=== PATIENT | female | born 1930 | race Caucasian/White ===

== ENCOUNTER 2016-07-30 20:39 | Inpatient (IN) | payer BC, OTHER ==
[~2016-07-30] VITALS: Ht 160 cm; Wt 47.6 kg
[~2016-07-30 20:39] MED LIST: ACET-1311 PO; AMLO2.5T PO; CHOL100010 PO; CYAN10005 PO; LORA-741 PO; METO50TA7 PO; ONDA4TAB10 SL; PRED-301 PO; SERT50TA PO; SYMIN160 INH
[2016-07-30 21:32] LABS: COMPLETE YES; EOS % 0.4 %; HEMATOCRIT 37.6 % (37-47); IG% 0.7 %; LYMPH % 9.5 %; LYMPH ABS # 0.72 K/uL (1.2-3.4); MEAN CELL VOLUME 90.6 fL (80-100); MEAN CORPUSCULAR HEMOGLOBIN 30.1 pg (25-34); MEAN CORPUSCULAR HGB CONC 33.2 g/dl (32-36); MEAN PLATELET VOLUME 8.9 fL (7.4-10.4); MONO % 3.9 %; NEUT % 85.5 %; PLATELET COUNT 157 K/uL (130-400); RED BLOOD COUNT 4.15 M/uL (4.2-5.4); WHITE BLOOD COUNT 7.61 K/uL (4.8-10.8)
[2016-07-30 21:32] LABS: URINE APPEARANCE CLEAR (CLEAR); URINE BILIRUBIN NEG (NEG); URINE COLOR YELLOW; URINE NITRITE NEG (NEG); URINE SPECIFIC GRAVITY 1.012 (1.000-1.030); UROBILINOGEN NEG (NEG); ZZURINE CULT IF INDIC CATH NO
[2016-07-30 21:39] LABS: MANUAL MICROSCOPIC REQUIRED? NO; REVIEW REQ? NO
[2016-07-30 21:43] LABS: PROTHROMBIN TIME (PATIENT) 10.7 SECONDS (9.0-12.0)
[2016-07-30 21:52] LABS: BUN/CREATININE RATIO 14.9 (10-20); CALCIUM 8.8 mg/dl (8.5-10.1); CREATININE 2.6 mg/dl (0.60-1.20)
--- NOTE | 2016-07-30 21:53 | DIAGNOSTIC IMAGING REPORT ---
CT HEAD WITHOUT CONTRAST (CT) CLINICAL HISTORY: Head trauma. Head pain. COMPARISON STUDY: MRI the brain performed December 08, 2007 TECHNIQUE: Axial CT of the brain is performed from the vertex to the skull base. IV contrast was not administered for this examination. CT DOSE: 844.62 mGy.cm FINDINGS: No intra or extra-axial mass lesions are visualized. There is no CT evidence of acute cortical infarction. There is no evidence of midline shift. There is no acute hemorrhage. No calvarial fractures are visualized. There are moderate white matter hypodensities likely on a small vessel basis. There is mild ventricular dilatation, likely secondary to volume loss. There is no evidence of acute sinusitis IMPRESSION: No acute intracranial findings Electronically signed by: Apollo Lazcano M.D. 07/30/2016 9:51 PM Dictated Date/Time: 07/30/2016 9:50 PM
[2016-07-30] MEDS ORDERED: ONDANSETRON INJ 2 MG/ML 2 ML VIAL IV STA (22:21)
[2016-07-30] MEDS ORDERED: MoRPHine SULFATE 4 MG/ML 1 ML CARP\\VIAL IV STA (22:21)
--- NOTE | 2016-07-30 22:28 | DIAGNOSTIC IMAGING REPORT ---
CHEST 1 VW FRONT-NOT PORTABLE CLINICAL HISTORY: Pain status post trauma COMPARISON STUDY: 03/25/2016 FINDINGS: The study is performed in a supine fashion. Line shadows paralleling the right chest wall are felt to represent skin folds. The heart is mildly enlarged. There is no overt failure. There is no lobar consolidation There is a stable left suprahilar opacity, unchanged from studies dating back to 2006. This likely represents a prominent costochondral junction. No pleural effusions are visualized.[ IMPRESSION: Portable supine study. Stable cardiomegaly. No acute findings. Electronically signed by: Apollo Lazcano M.D. 07/30/2016 10:26 PM Dictated Date/Time: 07/30/2016 10:23 PM
--- NOTE | 2016-07-30 22:29 | DIAGNOSTIC IMAGING REPORT ---
RIGHT SHOULDER MIN 2 VIEWS ROUTINE CLINICAL HISTORY: Right shoulder pain status post trauma COMPARISON: None. DISCUSSION: There is narrowing of the humeral acromial distance consistent with chronic rotator cuff tear. Osteoarthritic changes are present within the glenohumeral joint. No acute fractures or dislocations are visualized. IMPRESSION: 1. Radiographic evidence of chronic rotator cuff tear 2. No acute fractures or dislocations 3. Osteoarthritic change Electronically signed by: Apollo Lazcano M.D. 07/30/2016 10:27 PM Dictated Date/Time: 07/30/2016 10:26 PM
--- NOTE | 2016-07-30 22:30 | DIAGNOSTIC IMAGING REPORT ---
AP pelvis and right hip 4 views CLINICAL HISTORY: Right hip pain COMPARISON STUDY: CT scan dated 03/25/2016 FINDINGS: There is a mildly displaced intertrochanteric right hip fracture. There is an old left ischio pubic ring deformity. There is no SI joint diastases. Degenerative changes are present within the lower lumbar spine. IMPRESSION: Mildly displaced angulated intertrochanteric right hip fracture. Electronically signed by: Apollo Lazcano M.D. 07/30/2016 10:29 PM Dictated Date/Time: 07/30/2016 10:27 PM
[2016-07-30] MEDS ORDERED: CHOL1000 PO (22:42)
--- NOTE | 2016-07-30 22:59 | EMERGENCY ROOM VISIT NOTE ---
History First contact with patient: 20:49 Chief Complaint: HIP PAIN Stated Complaint: FALL/ HEAD BUMP, RT HIP & LEG PAIN History of Present Illness The patient is a 86 year old female who presents to the Emergency Room via EMS with complaints of right hip pain. The patient states that she was trying to sit on her bed and fell striking her head on the wall injuring her right hip and right shoulder. The patient states she is unable to bear weight on the right leg. The patient denies any headache, dizziness or visual changes. The patient denies any dizziness prior to the fall. The patient does admit to some right shoulder pain. The patient denies any chest pain, shortness of breath or any abdominal pain. The patient points to her right hip when asked where it is painful. The patient denies any pain radiating down her legs or any numbness and tingling. Review of Systems 10 system review was performed and was negative unless stated otherwise history of present illness. Past Medical/Surgical History Medical Problems: (1) Anemia Nos (2) Chronic Obstructive Asthma, Nos (3) Dementia (4) Hyperlipidemia Nec/Nos (5) Hypertension Nos (6) Rotator Cuff Synd Nos Social History Smoking Status: Never Smoker Marital Status: Housing Status: group home Occupation Status: retired Current/Historical Medications Scheduled Amlodipine (Norvasc), 2.5 MG PO DAILY Budesonide/Formoterol Fumarate (Symbicort 160/4.5 Inhaler ), 2 PUFFS INH BID Cholecalciferol (Vitamin D3), 1,000 UNITS PO DAILY Cyanocobalamin (Vitamin B-12), 2,000 MCG PO DAILY Metoprolol Succ (Toprol Xl) (Toprol-Xl), 50 MG PO DAILY Prednisone (Prednisone), 5 MG PO DAILY Sertraline (Zoloft), 75 MG PO DAILY Scheduled PRN Acetaminophen (Tylenol), 325-650 MG PO Q6H PRN for Pain Lorazepam (Ativan), 0.5 MG PO Q8 PRN for ANXIETY Allergies Coded Allergies: Penicillins (Verified Allergy, Intermediate, PT STATES SHE "KEELED OVER"-- I HAVE NO IDEA WHAT THIS MEANS!, 07/30/16) PT STATES SHE "KEELED OVER" Codeine (Verified Allergy, Unknown, UNKNOWN, 07/30/16) Moxifloxacin (Verified Allergy, Unknown, UNKNOWN, 07/30/16) Tramadol (Verified Allergy, Unknown, UNKNOWN, 07/30/16) Uncoded Allergies: CYCLOSPORINS (Allergy, Unknown, UNKNOWN, 07/30/16) Physical Exam Vital Signs Date Time Temp Pulse Resp B/P Pulse Ox O2 Delivery O2 Flow Rate FiO2 07/30/16 22:41 96 16 190/88 96 Room Air 07/30/16 21:13 91 07/30/16 20:50 36.5 77 24 197/96 99 Room Air Physical Exam GENERAL: 86-year-old white female appears uncomfortable secondary to hip pain. MENTAL STATUS: Patient is alert and oriented x3. She is answering questions appropriately. HEAD: Area of ecchymosis and tenderness noted on the posterior scalp. No open wounds noted. EYES: PERRLA. EOMs intact. EARS: Canals clear. TMs without hemotympanum noted. NECK: Supple, no lymphadenopathy noted. No carotid bruits noted. LUNGS: Clear auscultation without wheezes rales or rhonchi. CARDIAC: Regular rate and rhythm without murmur. Pulses is full and equal throughout. ABDOMEN: Positive bowel sounds all 4 quadrants. Soft, nontender to palpation without organomegaly or masses. NEURO: Grossly intact. SPINE: Entire spine nontender to palpation RIGHT SHOULDER: No gross bony deformity noted. There is an abrasion noted over the humeral head. Tenderness palpation over this area. RIGHT HIP: Difficult to evaluate for leg shortening since the patient has her leg in a flexed position. It does appear to be slightly externally rotated. The patient's tenderness palpation over the greater trochanter. Medical Decision & Procedures ER Provider Diagnostic Interpretation: CT HEAD WITHOUT CONTRAST (CT) CLINICAL HISTORY: Head trauma. Head pain. COMPARISON STUDY: MRI the brain performed December 08, 2007 TECHNIQUE: Axial CT of the brain is performed from the vertex to the skull base. IV contrast was not administered for this examination. CT DOSE: 844.62 mGy.cm FINDINGS: No intra or extra-axial mass lesions are visualized. There is no CT evidence of acute cortical infarction. There is no evidence of midline shift. There is no acute hemorrhage. No calvarial fractures are visualized. There are moderate white matter hypodensities likely on a small vessel basis. There is mild ventricular dilatation, likely secondary to volume loss. There is no evidence of acute sinusitis IMPRESSION: No acute intracranial findings Electronically signed by: Apollo Lazcano M.D. 07/30/2016 9:51 PM AP pelvis and right hip 4 views CLINICAL HISTORY: Right hip pain COMPARISON STUDY: CT scan dated 03/25/2016 FINDINGS: There is a mildly displaced intertrochanteric right hip fracture. There is an old left ischio pubic ring deformity. There is no SI joint diastases. Degenerative changes are present within the lower lumbar spine. IMPRESSION: Mildly displaced angulated intertrochanteric right hip fracture. Electronically signed by: Apollo Lazcano M.D. 07/30/2016 10:29 PM RIGHT SHOULDER MIN 2 VIEWS ROUTINE CLINICAL HISTORY: Right shoulder pain status post trauma COMPARISON: None. DISCUSSION: There is narrowing of the humeral acromial distance consistent with chronic rotator cuff tear. Osteoarthritic changes are present within the glenohumeral joint. No acute fractures or dislocations are visualized. IMPRESSION: 1. Radiographic evidence of chronic rotator cuff tear 2. No acute fractures or dislocations 3. Osteoarthritic change Electronically signed by: Apollo Lazcano M.D. 07/30/2016 10:27 PM CHEST 1 VW FRONT-NOT PORTABLE CLINICAL HISTORY: Pain status post trauma COMPARISON STUDY: 03/25/2016 FINDINGS: The study is performed in a supine fashion. Line shadows paralleling the right chest wall are felt to represent skin folds. The heart is mildly enlarged. There is no overt failure. There is no lobar consolidation There is a stable left suprahilar opacity, unchanged from studies dating back to 2006. This likely represents a prominent costochondral junction. No pleural effusions are visualized.[ IMPRESSION: Portable supine study. Stable cardiomegaly. No acute findings. Electronically signed by: Apollo Lazcano M.D. 07/30/2016 10:26 PM Laboratory Results 07/30/16 21:23 Red Blood Count 4.15, Mean Corpuscular Volume 90.6, Mean Corpuscular Hemoglobin 30.1, Mean Corpuscular Hemoglobin Concent 33.2, Mean Platelet Volume 8.9, Neutrophils (%) (Auto) 85.5, Lymphocytes (%) (Auto) 9.5, Monocytes (%) (Auto) 3.9, Eosinophils (%) (Auto) 0.4, Basophils (%) (Auto) 0.0, Neutrophils # (Auto) 6.51, Lymphocytes # (Auto) 0.72, Monocytes # (Auto) 0.30, Eosinophils # (Auto) 0.03, Basophils # (Auto) 0.00 07/30/16 21:23 Test 07/30/16 21:20 07/30/16 21:23 Urine Color YELLOW Urine Appearance CLEAR (CLEAR) Urine pH 7.0 (4.5-7.5) Urine Specific [place] 1.012 (1.000-1.030) Urine Protein NEG (NEG) Urine Glucose (UA) NEG (NEG) Urine Ketones NEG (NEG) Urine Occult Blood 1+ (NEG) Urine Nitrite NEG (NEG) Urine Bilirubin NEG (NEG) Urine Urobilinogen NEG (NEG) Urine Leukocyte Esterase TRACE (NEG) Urine WBC (Auto) 1-5 /hpf (0-5) Urine RBC (Auto) 0-4 /hpf (0-4) Urine Hyaline Casts (Auto) 1-5 /lpf (0-5) Urine Epithelial Cells (Auto) 5-10 /lpf (0-5) Urine Bacteria (Auto) NEG (NEG) White Blood Count 7.61 K/uL (4.8-10.8) Red Blood Count 4.15 M/uL (4.2-5.4) Hemoglobin 12.5 g/dL (12.0-16.0) Hematocrit 37.6 % (37-47) Mean Corpuscular Volume 90.6 fL (80-100) Mean Corpuscular Hemoglobin 30.1 pg (25-34) Mean Corpuscular Hemoglobin Concent 33.2 g/dl (32-36) Platelet Count 157 K/uL (130-400) Mean Platelet Volume 8.9 fL (7.4-10.4) Neutrophils (%) (Auto) 85.5 % Lymphocytes (%) (Auto) 9.5 % Monocytes (%) (Auto) 3.9 % Eosinophils (%) (Auto) 0.4 % Basophils (%) (Auto) 0.0 % Neutrophils # (Auto) 6.51 K/uL (1.4-6.5) Lymphocytes # (Auto) 0.72 K/uL (1.2-3.4) Monocytes # (Auto) 0.30 K/uL (0.11-0.59) Eosinophils # (Auto) 0.03 K/uL (0-0.5) Basophils # (Auto) 0.00 K/uL (0-0.2) RDW Standard Deviation 48.0 fL (36.4-46.3) RDW Coefficient of Variation 14.4 % (11.5-14.5) Immature Granulocyte % (Auto) 0.7 % Immature Granulocyte # (Auto) 0.05 K/uL (0.00-0.02) Prothrombin Time 10.7 SECONDS (9.0-12.0) Prothromb Time International Ratio 1.0 (0.9-1.1) Activated Partial Thromboplast Time 25.0 SECONDS (21.0-31.0) Partial Thromboplastin Ratio 1.0 Anion Gap 9.0 mmol/L (3-11) Est Creatinine Clear Calc Drug Dose 11.9 ml/min Estimated GFR () 18.7 Estimated GFR (Non- 16.2 BUN/Creatinine Ratio 14.9 (10-20) Calcium Level 8.8 mg/dl (8.5-10.1) Chemistry Specimen Hemolysis Medications Administered Medications (Trade) Dose Ordered Sig/Jose M Route Start Time Stop Time Status Last Admin Dose Admin Morphine Sulfate (MoRPHine SULFATE INJ) 4 mg NOW STAT IV 07/30/16 22:21 07/30/16 22:22 DC 07/30/16 22:39 4 MG Ondansetron HCl (Zofran Inj) 4 mg NOW STAT IV 07/30/16 22:21 07/30/16 22:22 DC 07/30/16 22:36 4 MG ECG Indication: other (fall) Findings: PVC, no acute ischemic change ED Course The patient was evaluated. The patient had received morphine and Zofran in route to the emergency room. The patient is placed on a monitor. EKG was ordered and interpreted by myself and Dr. Hernandez as above. Chest x-ray was ordered and interpreted by the radiologist as above without any acute findings. CBC and differential, renal profile, coags were ordered. Type and screen was ordered. Hand cath was placed. Urinalysis was ordered. X-ray of the right shoulder was ordered and interpreted by the radiologist as above without any acute findings. CT the head was ordered and interpreted by the radiologist as above without any acute findings . Pelvis with right hip was ordered and interpreted by the radiologist as above with right intertrochanteric fracture. Urinalysis revealed a trace of leukocytes and trace of blood. No bacteria was noted at this time. This will be sent for culture. The patient was reevaluated and stated she did not need any additional pain medication at this time. CBC was reviewed and was unremarkable. Renal profile revealed elevated BUN and creatinine. When the patient got back from CAT scan x-ray she was complaining of more pain and therefore was given morphine 4 mg IV and Zofran 4 mg IV push for associated nausea. The patient was informed of all findings. The patient's case was discussed with Dr. Hernandez who independently evaluated the patient. The hospitalist was consulted for admission. Medical Decision The patient presented with most likely right hip fracture therefore Emergency Department hip fracture protocol was initiated. She also presented with head injury and right shoulder abrasion therefore those x-rays were also ordered to evaluate for fracture or intracranial bleed, subarachnoid hemorrhage, subdural hematoma, intercranial bleed or fracture. X-ray the right hip was ordered to evaluate for fracture. Impression Primary Impression: Hip fracture, right Additional Impressions: Abrasion of shoulder, right Renal failure Departure Information Dispostion Being Evaluated By Hospitalist Condition GOOD Referrals Bon Weinberg M.D. (PCP) Patient Instructions My [facility] Problem Qualifiers
--- NOTE | 2016-07-30 23:37 | History and Physical ---
History & Physical Date & Time of Service: Jul 30, 2016 at 23:37 Chief Complaint: Fall/ Head Bump, Rt Hip & Leg Pain Primary Care Physician: Bon Weinberg M.D. History of Present Illness This is an 86 y/o F who presents with right hip pain. Her son reports that she was trying to transfer from her chair to her bed and subsequently fell while hitting her head, right hip and shoulder against the wall. She is unable to bear weight on the right side. She denies headaches, LOC, pre-syncope, syncope, neurological changes, numbness/tingling chest pain, shortness of breath. Pain is about 7/10 but improving. SHe is able to move her lower extremities but her right leg is rather painful. Past Medical/Surgical History Medical Problems: (1) Anemia Nos Status: Chronic (2) Chronic Obstructive Asthma, Nos Status: Chronic (3) Dementia Status: Chronic (4) Hyperlipidemia Nec/Nos Status: Chronic (5) Hypertension Nos Status: Chronic (6) Rotator Cuff Synd Nos Status: Chronic Social History Smoking Status: Never Smoker Alcohol Use: none Marital Status: Housing status: assisted living Occupational Status: retired Immunizations History of Influenza Vaccine: Unknown History of Tetanus Vaccine?: Unknown History of Pneumococcal: Unknown History of Hepatitis B Vaccine: Unknown Multi-Drug Resistant Organisms History of MDRO: No Allergies Coded Allergies: Penicillins (Verified Allergy, Intermediate, PT STATES SHE "KEELED OVER"-- I HAVE NO IDEA WHAT THIS MEANS!, 07/30/16) PT STATES SHE "KEELED OVER" Codeine (Verified Allergy, Unknown, UNKNOWN, 07/30/16) Moxifloxacin (Verified Allergy, Unknown, UNKNOWN, 07/30/16) Tramadol (Verified Allergy, Unknown, UNKNOWN, 07/30/16) Uncoded Allergies: CYCLOSPORINS (Allergy, Unknown, UNKNOWN, 07/30/16) Home Medications Scheduled Amlodipine (Norvasc), 2.5 MG PO DAILY Budesonide/Formoterol Fumarate (Symbicort 160/4.5 Inhaler ), 2 PUFFS INH BID Cholecalciferol (Vitamin D3), 1,000 UNITS PO DAILY Cyanocobalamin (Vitamin B-12), 2,000 MCG PO DAILY Metoprolol Succ (Toprol Xl) (Toprol-Xl), 50 MG PO DAILY Prednisone (Prednisone), 5 MG PO DAILY Sertraline (Zoloft), 75 MG PO DAILY Scheduled PRN Acetaminophen (Tylenol), 325-650 MG PO Q6H PRN for Pain Lorazepam (Ativan), 0.5 MG PO Q8 PRN for ANXIETY Review of Systems Constitutional: No chills, No fever Eyes: No worsening of vision ENT: No hearing loss Respiratory: No cough, No dyspnea at rest, No dyspnea on exertion, No shortness of breath, No sputum, No wheezing Cardiovascular: No PND, No chest pain, No edema, No orthopnea Abdomen: No constipation, No diarrhea, No nausea, No pain, No vomiting Musculoskeletal: + joint pain, + muscle pain, + swelling, No calf pain Genitourinary - Female: + urinary incontinence, No dysuria, No urinary frequency, No urinary urgency Physical Exam Vital Signs Date Time Temp Pulse Resp B/P Pulse Ox O2 Delivery O2 Flow Rate FiO2 07/30/16 23:23 86 18 145/90 97 07/30/16 22:41 96 16 190/88 96 Room Air 07/30/16 21:13 91 07/30/16 20:50 36.5 77 24 197/96 99 Room Air General Appearance: + mild distress (pain) Eyes: PERRL, EOMI ENT: hearing grossly normal Neck: supple, thyroid normal, no JVD Respiratory/Chest: lungs clear, normal breath sounds, no respiratory distress, no accessory muscle use Cardiovascular: regular rate, rhythm, no edema, no JVD Abdomen/GI: normal bowel sounds, non tender, soft Extremities/Musculoskelatal: no pedal edema, + pertinent finding (decreased range of motion at the right hip) Neurologic/Psych: candy separator enrobing II-XII nml as tested, + motor weakness (3/5 Right lower ext ) Diagnostics Laboratory Results Results Past 24 Hours Test 07/30/16 21:20 07/30/16 21:23 Range/Units Urine Color YELLOW Urine Appearance CLEAR CLEAR Urine pH 7.0 4.5-7.5 Urine Specific [place] 1.012 1.000-1.030 Urine Protein NEG NEG Urine Glucose (UA) NEG NEG Urine Ketones NEG NEG Urine Occult Blood 1+ NEG Urine Nitrite NEG NEG Urine Bilirubin NEG NEG Urine Urobilinogen NEG NEG Urine Leukocyte Esterase TRACE NEG Urine WBC (Auto) 1-5 0-5 /hpf Urine RBC (Auto) 0-4 0-4 /hpf Urine Hyaline Casts (Auto) 1-5 0-5 /lpf Urine Epithelial Cells (Auto) 5-10 0-5 /lpf Urine Bacteria (Auto) NEG NEG White Blood Count 7.61 4.8-10.8 K/uL Red Blood Count 4.15 4.2-5.4 M/uL Hemoglobin 12.5 12.0-16.0 g/dL Hematocrit 37.6 37-47 % Mean Corpuscular Volume 90.6 80-100 fL Mean Corpuscular Hemoglobin 30.1 25-34 pg Mean Corpuscular Hemoglobin Concent 33.2 32-36 g/dl Platelet Count 157 130-400 K/uL Mean Platelet Volume 8.9 7.4-10.4 fL Neutrophils (%) (Auto) 85.5 % Lymphocytes (%) (Auto) 9.5 % Monocytes (%) (Auto) 3.9 % Eosinophils (%) (Auto) 0.4 % Basophils (%) (Auto) 0.0 % Neutrophils # (Auto) 6.51 1.4-6.5 K/uL Lymphocytes # (Auto) 0.72 1.2-3.4 K/uL Monocytes # (Auto) 0.30 0.11-0.59 K/uL Eosinophils # (Auto) 0.03 0-0.5 K/uL Basophils # (Auto) 0.00 0-0.2 K/uL RDW Standard Deviation 48.0 36.4-46.3 fL RDW Coefficient of Variation 14.4 11.5-14.5 % Immature Granulocyte % (Auto) 0.7 % Immature Granulocyte # (Auto) 0.05 0.00-0.02 K/uL Prothrombin Time 10.7 9.0-12.0 SECONDS Prothromb Time International Ratio 1.0 0.9-1.1 Activated Partial Thromboplast Time 25.0 21.0-31.0 SECONDS Partial Thromboplastin Ratio 1.0 Sodium Level 140 136-145 mmol/L Potassium Level 5.0 3.5-5.1 mmol/L Chloride Level 104 98-107 mmol/L Carbon Dioxide Level 27 21-32 mmol/L Anion Gap 9.0 3-11 mmol/L Blood Urea Nitrogen 39 7-18 mg/dl Creatinine 2.60 0.60-1.20 mg/dl Est Creatinine Clear Calc Drug Dose 11.9 ml/min Estimated GFR () 18.7 Estimated GFR (Non- 16.2 BUN/Creatinine Ratio 14.9 10-20 Random Glucose 117 70-99 mg/dl Calcium Level 8.8 8.5-10.1 mg/dl Chemistry Specimen Hemolysis Impression Assessment and Plan Right hip fracture Hip X-ray- Mildly displaced angulated intertrochanteric right hip fracture. Pain control Avoid Ativan as patient seems a little confused and has a history of dementia IVF's Ortho consult Bed rest PT/OT for after surgery Hand cath Labs drawn- Coags, CBC/CMP EKG, Chest X-ray MENA on CKD stage 3-4? Hydration Recheck BMP tomorrow. HTN: Continue Amlodipine, Metoprolol DVT proph SCDs Code: Patient would not want any heroic measures correction Full code for surgery purposes Assessment and Plan Attending Addendum: I have physically seen and examined this patient, have directed their medical care, have supervised the medical residents activities, and agree with the H&P as noted above, with the following changes: NONE
[2016-07-30] MEDS ORDERED: SOD PHOSPHATE/SOD BIPHOSPHATE ENEMA 132 ML BTL PR PRN (23:45)
[2016-07-30] MEDS ORDERED: NALOXONE HCL 0.4 MG/1 ML VIAL/CARP IV PRN (23:45)
[2016-07-30] MEDS ORDERED: POLYETHYLENE (MIRALAX) 17 GM PACK PO PRN ×2 (23:45)
[2016-07-30] MEDS ORDERED: ONDANSETRON INJ 2 MG/ML 2 ML VIAL IV PRN (23:45)
[2016-07-30] MEDS ORDERED: MoRPHine SULFATE 2 MG/ML CARP IV PRN (23:45)
[2016-07-30] MEDS ORDERED: MAGNESIUM HYDROXIDE SUSP 30 ML UDC PO PRN ×2 (23:45)
[2016-07-30] MEDS ORDERED: ALUMINUM/MAGNESIUM/SIMETH (MAALOX MAX) 30 ML UDC PO PRN (23:45)
[2016-07-30] MEDS ORDERED: BISACODYL 10 MG SUPP PR PRN (23:45)
[2016-07-30] MEDS ORDERED: ACETAMINOPHEN 325 MG TAB PO PRN ×2 (23:45)
[2016-07-31] VITALS (9 sets, daily range): BP systolic 95–170; BP diastolic 45–84; PULSE 70–87; TEMP 36.5–37.1; O2SAT 93–100; Ht 160 cm; Wt 47.6 kg
[2016-07-31] MEDS ORDERED: D5W AND 1/2NSS 1,000 ML IV SCH (01:15)
[2016-07-31 06:56] LABS: BUN/CREATININE RATIO 15.8 (10-20); CALCIUM 8.1 mg/dl (8.5-10.1); CREATININE 2.1 mg/dl (0.60-1.20); POTASSIUM 4.9 mmol/L (3.5-5.1)
[2016-07-31] MEDS ORDERED: NALOXONE HCL 0.4 MG/1 ML VIAL/CARP IV PRN ×2 (08:15→10:30)
[2016-07-31] MEDS ORDERED: BISACODYL 10 MG SUPP PR PRN ×2 (08:15→10:30)
[2016-07-31] MEDS ORDERED: POLYETHYLENE (MIRALAX) 17 GM PACK PO PRN (08:15)
[2016-07-31] MEDS ORDERED: MAGNESIUM HYDROXIDE SUSP 30 ML UDC PO PRN ×2 (08:15→10:30)
[2016-07-31] MEDS ORDERED: SOD PHOSPHATE/SOD BIPHOSPHATE ENEMA 132 ML BTL PR PRN (08:15)
--- NOTE | 2016-07-31 08:24 | ORTHOPEDIC CONSULTATION ---
DATE OF CONSULTATION: 07/31/2016 DATE OF CONSULTATION: 07/31/2016. CHIEF COMPLAINT: Right hip pain. HISTORY OF PRESENT ILLNESS: An 86-year-old female presents after an unwitnessed fall, lives in a facility who was found on the floor, apparently trying to transfer from her bed to the chair or vice versa, fell hitting her head, right hip and right shoulder against a wall. She is unable to bear weight on the right side. There was no reported loss of consciousness, presyncope or neurologic changes. She denies any chest pain, shortness of breath, fever or chills. She can move her left leg, but the right leg is painful. She can move both hands. She is very demented and does not recall things very clearly. She does note that she does have a son who lives locally. I did call him on the phone and talk to him regarding the gravity of the situation including the potential for mortality based on this comorbidity and this fracture and this patient profile. X-rays are reviewed revealing an intertrochanteric fracture with degenerative change about the hip. At this point in time, if surgical technique is requested would proceed with [facility]. PAST MEDICAL AND PAST SURGICAL HISTORY: Remarkable for chronic anemia, chronic obstructive pulmonary disease, chronic dementia, chronic hyperlipidemia, chronic hypertension, and bilateral rotator cuff syndromes. SOCIAL HISTORY: Reveals that she does not smoke or drink. She is . She lives in assisted living. She is retired. IMMUNIZATION STATUS: Is unknown. No multidrug resistant organisms known. ALLERGIES: PENICILLIN, UNKNOWN REACTION; CODEINE, UNKNOWN REACTION; MOXIFLOXACIN, UNKNOWN REACTION; TRAMADOL, UNKNOWN REACTION; CYCLOSPORINE'S, UNKNOWN REACTION. HOME MEDICATIONS: Include amlodipine, budesonide - formoterol fumarate, vitamin D, vitamin B12, metoprolol, prednisone and Zoloft. P.R.N. MEDICATIONS: Include lorazepam and acetaminophen. REVIEW OF SYSTEMS: Reveals no admitable chest pain, shortness of breath, fever, chills, nausea, vomiting. PHYSICAL EXAMINATION: HEAD, EYES, EARS, NOSE, AND THROAT: Today reveals that she has a slight facial droop on the right. There is no loss of EOMI. Her hearing is grossly normal. Her neck is nontender. CHEST: Clear. HEART: Regular rate and rhythm. ABDOMEN: Soft, nontender, without mass. EXTREMITIES: Reveal right leg to be painful and slightly shortened. Left leg without pain. Both upper movements are intact, has pain in both shoulders, has significant rotator cuff disease bilaterally. LABORATORY WORK: Is reviewed. Chest x-ray is reviewed. EKG reveals some chronic changes, age indeterminate changes. Pelvic x-ray reveals an intertrochanteric fracture with degenerative disease. ASSESSMENT: Right hip fracture. Discussed with son, wants to proceed with surgery. Will make arrangements for this BHAKTI. Medical clearance will be required. She has hypertension, renal insufficiency and coronary artery disease based on her EKG. Will need medical clearance. For perioperative scenario will be FULL CODE in the operating room and after that has living will with no heroic measures. This was discussed in detail with her son including the demise within the first 3 months. He understands this. Will proceed as cleared.
--- NOTE | 2016-07-31 08:41 | Hospitalist Progress Note ---
Hospitalist Progress Note Date of Service Jul 31, 2016. Subjective Pt evaluation today including: conversation w/ patient, conversation w/ family , physical exam, chart review, lab review, review of studies, review of inpatient medication list PO Intake: NPO Voiding: henderson catheter in place The patient was seen and examined this morning. Pt reports having lots of pain in the right hip currently, left shoulder is sore. Her son, Delano is present at bedside. She denies any lightheadedness, dizziness, shortness of breath, chest pain, nausea, abd pain. Son reports she has significant short term memory loss and will not remember this visit within a few minutes. Her story regarding how she fell has "several versions" per the son as well. Spoke with Dr. Dale and pt is being transported to the OR now. Constitutional: No chills, No fever, No sweats Eyes: No diplopia, No redness ENT: No dental problems, No trouble swallowing Respiratory: + problem reported (hx of asthma, uses inhalers), No cough, No dyspnea on exertion, No shortness of breath Cardiovascular: No chest pain, No palpitations Abdomen: No constipation, No diarrhea, No nausea, No pain, No vomiting Musculoskeletal: + joint pain (R hip), No muscle pain, No swelling Female : + problem reported Neurologic: No numbness/tingling Skin: No itch, No rash Objective Vital Signs Date Time Temp Pulse Resp B/P Pulse Ox O2 Delivery O2 Flow Rate FiO2 07/31/16 07:30 Room Air 07/31/16 07:12 37.1 75 18 155/71 93 Room Air 07/31/16 01:20 36.7 87 16 164/84 Room Air 07/31/16 00:56 93 16 150/96 93 07/30/16 23:23 86 18 145/90 97 07/30/16 22:41 96 16 190/88 96 Room Air 07/30/16 21:13 91 07/30/16 20:50 36.5 77 24 197/96 99 Room Air Physical Exam General Appearance: WD/WN, no apparent distress Eyes: PERRL, EOMI ENT: hearing grossly normal, pharynx normal Neck: supple, no JVD Respiratory/Chest: lungs clear, no respiratory distress, no accessory muscle use Cardiovascular: regular rate, rhythm, + pertinent finding (opening click) Abdomen: normal bowel sounds, non tender, soft, + pertinent finding (henderson catheter in place draining clear yellow urine) Extremities: no pedal edema, no calf tenderness, + pertinent finding (L shoulder abraision) Neurologic/Psychiatric: alert, normal mood/affect, + pertinent finding ( oriented to self and place, not date) Skin: normal color, warm/dry Laboratory Results Last 24 Hours Test 07/30/16 21:20 07/30/16 21:23 07/31/16 06:02 Urine Color YELLOW Urine Appearance CLEAR Urine pH 7.0 Urine Specific [place] 1.012 Urine Protein NEG Urine Glucose (UA) NEG Urine Ketones NEG Urine Occult Blood 1+ Urine Nitrite NEG Urine Bilirubin NEG Urine Urobilinogen NEG Urine Leukocyte Esterase TRACE Urine WBC (Auto) 1-5 /hpf Urine RBC (Auto) 0-4 /hpf Urine Hyaline Casts (Auto) 1-5 /lpf Urine Epithelial Cells (Auto) 5-10 /lpf Urine Bacteria (Auto) NEG White Blood Count 7.61 K/uL Red Blood Count 4.15 M/uL Hemoglobin 12.5 g/dL Hematocrit 37.6 % Mean Corpuscular Volume 90.6 fL Mean Corpuscular Hemoglobin 30.1 pg Mean Corpuscular Hemoglobin Concent 33.2 g/dl Platelet Count 157 K/uL Mean Platelet Volume 8.9 fL Neutrophils (%) (Auto) 85.5 % Lymphocytes (%) (Auto) 9.5 % Monocytes (%) (Auto) 3.9 % Eosinophils (%) (Auto) 0.4 % Basophils (%) (Auto) 0.0 % Neutrophils # (Auto) 6.51 K/uL Lymphocytes # (Auto) 0.72 K/uL Monocytes # (Auto) 0.30 K/uL Eosinophils # (Auto) 0.03 K/uL Basophils # (Auto) 0.00 K/uL RDW Standard Deviation 48.0 fL RDW Coefficient of Variation 14.4 % Immature Granulocyte % (Auto) 0.7 % Immature Granulocyte # (Auto) 0.05 K/uL Prothrombin Time 10.7 SECONDS Prothromb Time International Ratio 1.0 Activated Partial Thromboplast Time 25.0 SECONDS Partial Thromboplastin Ratio 1.0 Sodium Level 140 mmol/L 140 mmol/L Potassium Level 5.0 mmol/L 4.9 mmol/L Chloride Level 104 mmol/L 105 mmol/L Carbon Dioxide Level 27 mmol/L 30 mmol/L Anion Gap 9.0 mmol/L 5.0 mmol/L Blood Urea Nitrogen 39 mg/dl 33 mg/dl Creatinine 2.60 mg/dl 2.10 mg/dl Est Creatinine Clear Calc Drug Dose 11.9 ml/min 14.7 ml/min Estimated GFR () 18.7 24.3 Estimated GFR (Non- 16.2 20.9 BUN/Creatinine Ratio 14.9 15.8 Random Glucose 117 mg/dl 129 mg/dl Calcium Level 8.8 mg/dl 8.1 mg/dl Chemistry Specimen Hemolysis Assessment and Plan Right hip fracture s/p fall - Hip X-ray- Mildly displaced angulated intertrochanteric right hip fracture. - CT of the head reviewed and negative for acute findings. Pt denies headache, dizziness, lightheadedness. No apparent abrasions on head. Pt does have Left shoulder abrasion and has ecchymosis surrounding the left collarbone. - Planned for OR this morning- Spoke with Dr. Mejia at bedside - Analgesia with morphine sulfate 2 or 4 mg - Avoid Ativan as patient seems a little confused and has a history of dementia - Cont D5W and 1/2 NSS @ 75mL/hr - PT/OT after surgery - Bowel regimen on board - Cont Henderson cath MENA on CKD stage IV - Cont gentle hydration for now - Cr. was 2.6 on admit and now improved to 2.1 HTN: - Continue Amlodipine 2.5 mg daily, Metoprolol succucinate 50 mg daily Asthma COPD - Cont albuterol inhalers as needed, cont prednisone 5 mg daily chronically - Breath sounds are clear this morning, will need flutter and incentive spirometry after surgery Seronegative Rheumatoid Arthritis - Continue prednisone 5 mg daily chronically Chronic Pain syndrome secondary to osteoarthritis, cervical spine stenosis with myelopathy Dementia - Per son pt has worsening mental status in relation to short term memory. She was moved to [facility] last January and was doing a little better since living there at that time. Likely has progressed over the past few months. Depression/Anxiety - Cont zoloft 75 mg daily DVT proph: teds, SCDs, no chemical anticoagulation with pending surgery CODE STATUS: FULL CODE: Patient would not want any heroic measures snf Disposition: From [facility] in [place], will need rehab after hospitalization, CM to assist with dc planning
[2016-07-31] MEDS ORDERED: CLINDAMYCIN IV 900 MG in DEXTROSE 5% ADD-VANTAGE 100ML 100 ML IV SCH (09:00)
[2016-07-31] MEDS ORDERED: AMLODIPINE BESYLATE 5 MG TAB PO SCH (09:00)
[2016-07-31] MEDS: SERTRALINE HCL 50 MG TAB PO SCH (09:00)
[2016-07-31] MEDS ORDERED: METOPROLOL SUCC 50MG EXT REL TAB PO SCH (09:00)
[2016-07-31] MEDS: BUDESONIDE/FORMOTEROL FUMARATE 160/4.5 60 PUFFS/INHALER INH SCH ×2 (09:00→20:59)
[2016-07-31] MEDS ORDERED: FENTANYL CITRATE INJ 50 MCG/1 ML 2 ML VIAL ONE (09:03)
[2016-07-31] MEDS ORDERED: ATROPINE SULFATE 0.1 MG/ML 5ML SYR IV PRN (10:00)
[2016-07-31] MEDS ORDERED: HYDROmorphone INJ 2 MG/ML SYR/VIAL IV PRN (10:00)
[2016-07-31] MEDS ORDERED: ONDANSETRON INJ 2 MG/ML 2 ML VIAL IV PRN ×2 (10:00→10:30)
[2016-07-31] MEDS ORDERED: EpHEDrine SULFATE INJ 50 MG/ML AMP IV PRN (10:00)
[2016-07-31] MEDS ORDERED: PHENYLEPHRINE 100MCG/ML 5ML SYR IV PRN (10:00)
--- NOTE | 2016-07-31 10:13 | [facility] Post Operative Brief Note ---
Immediate Operative Summary Operative Date Jul 31, 2016. Pre-Operative Diagnosis Right hip fracture Post-Operative Diagnosis Right hip fracture Procedure(s) Performed Right Open Reduction Internal Fixation Dynamic Hip Screw Surgeon Dr. Mejia Certified Welder Surgeon(s) Milo Gates PA-C Estimated Blood Loss 200mL Findings right IT fx with comminution Fluids (cc crystalloids) 1000cc Specimens None per surgeon Drains none Anesthesia spinal Complication(s) None Disposition Recovery Room / PACU
[2016-07-31] MEDS ORDERED: MoRPHine SULFATE 2 MG/ML CARP IV PRN (10:30)
[2016-07-31] MEDS ORDERED: OXYCODONE HCL IR 5 MG TAB (IMMEDIATE RELEASE) PO PRN ×2 (10:30)
[2016-07-31] MEDS ORDERED: ACETAMINOPHEN 325 MG TAB PO PRN (10:30)
--- NOTE | 2016-07-31 11:01 | DIAGNOSTIC IMAGING REPORT ---
RIGHT HIP OR FILMS CLINICAL HISTORY: RT DHS Righthip pain COMPARISON STUDY: None FLUOROSCOPY TIME: 53 seconds. FINDINGS: Operative changes consistent with a right hip pinning and compression plate placement IMPRESSION: Right hip pinning Electronically signed by: Rosalio Shaikh M.D. 07/31/2016 10:59 AM Dictated Date/Time: 07/31/2016 10:58 AM
--- NOTE | 2016-07-31 11:12 | DIAGNOSTIC IMAGING REPORT ---
PELVIS 1 OR 2 VIEW ROUTINE CLINICAL HISTORY: Right hip fracture COMPARISON STUDY: 07/30/2016 FINDINGS: There is been internal fixation of the patient's right hip fracture with a dynamic hip screw. There is air within the soft tissues consistent with recent surgery. There are overlying skin helder. There is an old left pubic ring fracture. IMPRESSION: Internally fixated intertrochanteric right hip fracture Electronically signed by: Apollo Lazcano M.D. 07/31/2016 11:10 AM Dictated Date/Time: 07/31/2016 11:09 AM
--- NOTE | 2016-07-31 11:43 | OPERATIVE REPORT ---
DATE OF OPERATION: 07/31/2016 SURGEON: Dr. Mejia. ROOMING HOUSE OPERATOR: Milo Gates PA-C. No resident or fellow available. PREOPERATIVE DIAGNOSIS: Intertrochanteric fracture, right hip. POSTOPERATIVE DIAGNOSIS: Same. OPERATION PERFORMED: Closed reduction internal fixation with dynamic hip screw, right hip. PERIOPERATIVE SITUATION: Medically cleared female with comorbidities, high risk who has been discussed in detail with her and her family, her son Delano, regarding the complications including . At this point in time wants to proceed with surgical treatment to try to maximize her lifestyle for the next part of her life. She does have hip arthritis. DESCRIPTION OF PROCEDURE: The patient appropriately identified, site verified, consent verified, and 900 mg of clindamycin confirmed as being given. The patient was placed supine on the operating table in the right lower extremity, reduced appropriately and then the fracture prepped and draped in the usual routine fashion. The hip after it was reduced, was then approached through the lateral exposure. Sharp dissection through skin and blunt dissection down to the fascia, this was then incised under direct vision. The IT band split, the vastus lateralis muscle fibers split and using fluoroscopic control, a guidewire was passed until it was in the center of the head on the lateral and slightly inferior on the AP. It was then measured to a 75, and a 75 drill bit applied with short barrel, the lag screw was then placed in excellent purchase on the AP and lateral. The 135 4-hole side plate was then placed and secured with 4 cortical screws of varying in length from 42-36 mm; two 36 mm, one 38 mm and one 42 mm, excellent purchase on all of those. Fluoroscopic control revealed anatomic reduction of the fracture and excellent position of the hardware. The wound was then irrigated and then closed in layers using #1 Vicryl for the fascial layers, 2-0 Vicryl for the subcutaneous layer and stainless steel clips for skin. Appropriate soft tissue dressing applied and patient transferred to recovery room in satisfactory condition having tolerated the procedure well. ESTIMATED BLOOD LOSS: Was 200 including some of the old hematoma. CRYSTALLOID: 1000 mL. CONDITION: The patient was hemodynamically stable during the case. SUMMARY OF IMPLANTS: DHS plate short barrel 4-hole 135 degree, DHS lag screw 12.7 mm 75 mm in length, 4-hole 135 DHS plate with short barrel and cortical screws x4, 36 x2, 38 x1 and 42 x 1. Deep venous thrombosis prophylaxis per medicine. I attest to the content of the Intraoperative Record and any orders documented therein. Any exceptio ns are noted below.
--- NOTE | 2016-07-31 13:40 | Anesthesiology Progress Note ---
Anesthesia Post Op Note Date & Time Jul 31, 2016 at 13:40 Vital Signs Pain Intensity: 0 Vital Signs Past 12 Hours Date Time Temp Pulse Resp B/P Pulse Ox O2 Delivery O2 Flow Rate FiO2 07/31/16 12:55 71 16 93/41 100 Nasal Cannula 2 07/31/16 12:45 70 18 106/56 100 Nasal Cannula 2 07/31/16 12:35 68 18 104/52 100 Nasal Cannula 2 07/31/16 12:25 68 18 104/52 100 Nasal Cannula 2 07/31/16 12:15 71 18 110/45 100 Nasal Cannula 2 07/31/16 12:05 70 18 106/41 100 Nasal Cannula 2 07/31/16 11:55 70 18 104/48 100 Nasal Cannula 2 07/31/16 11:45 70 18 110/45 100 Nasal Cannula 2 07/31/16 11:35 68 18 106/48 100 Nasal Cannula 2 07/31/16 11:25 68 18 109/41 100 Nasal Cannula 2 07/31/16 11:15 67 18 104/57 100 Nasal Cannula 2 07/31/16 11:05 69 18 103/73 100 Nasal Cannula 2 07/31/16 10:55 68 18 114/49 100 Nasal Cannula 2 07/31/16 10:45 67 16 101/42 100 Nasal Cannula 2 07/31/16 10:35 66 16 106/47 100 Mask 10 07/31/16 10:25 66 16 108/79 100 Mask 10 07/31/16 10:15 37.2 72 16 114/64 100 Mask 10 07/31/16 07:30 Room Air 07/31/16 07:12 37.1 75 18 155/71 93 Room Air Notes Mental Status: alert / awake / arousable, participated in evaluation Pt Amnestic to Procedure: Yes Nausea / Vomiting: adequately controlled Pain: adequately controlled Airway Patency, RR, SpO2: stable & adequate BP & HR: stable & adequate Hydration State: stable & adequate Anesthetic Complications: no major complications apparent
[2016-07-31] MEDS: SODIUM CHLORIDE 0.9% 1000ML 1,000 ML IV SCH ×2 (14:26→18:05)
--- NOTE | 2016-07-31 15:00 | Discharge Instructions ---
Discharge Instructions Date of Service Jul 31, 2016. Admission Reason for Admission: Hip Fracture, Right Discharge Discharge Diagnosis / Problem: Right hip s/p ORIF Discharge Goals Goal(s): Decrease discomfort, Improve function Activity Recommendations Activity Level: Assistance Required Therapies: Physical Therapy, Weight Bearing Status (as tolerated on Right leg) Weightbearing Status: Right weightbearing (as tolerated) Lifting Limitations: gradually increase as tolerated Shower/Bathe: keep incision dry . Additional Information Patient informed of condition: Yes Advance Directives: Yes DNR: Yes Level of Care: Skilled Communicable Disease: No Prognosis: Stable Hand Catheter: No Instructions / Follow-Up Instructions / Follow-Up DISCHARGE INSTRUCTIONS: HIP FRACTURE SELF CARE INSTRUCTIONS: A. You are to ambulate with a walker or crutches until your balance is improved. B. You are WEIGHT BEARING TOLERATED on your operative lower extremity. C. Wear low heeled shoes with non-slip soles D. Be sure that your floors are free of things that could trip you throw rugs, electrical cords, and small objects. Avoid wet and waxed floors, especially with crutches/walker/cane. E. Try to walk several times a day with rest periods between. F. DO NOT soak or submerge incision area in water. (No baths, swimming pools, hot tubs) G. You may have a large, band-aid like dressing over your incision. Keep it clean. H. Do NOT apply soap or any ointment/lotions directly over incision. I. You may use ice as needed to operative site. SPECIAL CARE INSTRUCTIONS: VERY IMPORTANT TO READ AND REVIEW A. You may be at risk for phlebitis or blood clots. a. Wear surgical stockings (AICHA hose) for 2 weeks after surgery to improve circulation and reduce swelling. b. Take ASPIRIN 325 mg twice daily as directed. This is your blood thinner. B. There are a few signs you need to watch for after you are home. Call [facility] at [phone] if you experience any of the following: a. If you have a temperature of 101 degrees or higher. b. Sudden increase in pain in your hip not relieved by rest or pain medication. c. Any fluid or drainage from the incision; redness of the incision. d. Shortness of breath or chest pain. B. Please call [facility] at [phone] if you have any questions or concerns about your operation or recovery. C. Pain Medication: a. You will be prescribed pain medication upon discharge that should last till your first post-operative appointment. b. If you experience nausea and/or skin rash, discontinue this medication and contact our office for an alternative medication. c. Caution- narcotic pain medication can cause constipation. FOLLOW UP VISIT: Please call [facility] at [phone] to schedule a follow up appointment 12-14 days from the date of your surgery date. Discharge Summary Patient is an 86 year old female POD #4 s/p internal fixation of intertrochanteric fracture of the R hip. She will be discharged to [facility] this afternoon and [facility] thereafter. Patient has tolerated the surgery well and will be scheduled for follow up with Dr. Mejia in 2 weeks. Her hemoglobin was 7.4 yesterday, falling for the second time during this admission. We transfused one unit of PRBCs and today her Hbg rebounded to 9.1. On further investigation her Hemoccult came back positive today so she will need a follow up CBC in 2-3 days. She will also be placed on Protonix 40mg Daily for GI prophylaxis. Her blood pressure also has been continuously elevated the last few days this morning being 168/72 so we have increased her Norvasc dose to 5mg daily. 1) POD #4 s/p internal fixation of intertrochanteric hip fracture - Discharge to [facility] - No complaints of pain this morning - Tylenol 650mg q6h for pain 2) Anemia - Acute blood loss possible 2/2 GI bleed, Chronic prednisone, and anticoagulation use - 1 unit PRBC transfusion yesterday, Hgb improved to 9.1 - Follow up CBC in 2-3 days as outpatient - Protonix 40mg PO Daily 3) Hypertension - Toprol XL 50mg PO Daily - Norvasc 2.5mg qAM --> Increased to 5mg due to consistently elevated blood pressures (chose not to increase Toprol due to occasional bradycardia) 4) Dementia - Baseline confused - Oriented to person but not to place or time 5) Pain - Tylenol 650mg q6 - Morphine 2mg q2h PRN 6) DVT prophylaxis - Remain only on Aspirin 325mg BID for the next month - Discontinued Heparin due to bleeding risk for gastritis and peptic ulcers with chronic prednisone use and recent surgery 7) Seronegative Rheumatoid Arthritis - Prednisone 5mg daily 8) Code Status - DNR Current Hospital Diet Patient's current hospital diet: AHA Diet (Heart Healthy) Discharge Diet Recommended Diet: Low Sodium Diet (2gm Na) Procedures Procedures Performed: Right Open Reduction Internal Fixation Dynamic Hip Screw Pending Studies Studies pending at discharge: no Physician Orders On Transfer Vital Signs: Daily vitals, continue to monitor blood pressure with recent change in Norvasc dose to 5mg daily Additional Orders: Monitor CBC in 2-3 days due to positive hemoccult. Has required 2 transfusions on separate occasions during admissions. Consider referral to outpatient Gastroenterology if further investigating etiology of anemia. Follow up with Primary Care Physician in 1-2 weeks Medical Emergencies . Who to Call and When: Medical Emergencies: If at any time you feel your situation is an emergency, please call 911 immediately. . Non-Emergent Contact Non-Emergency issues call your: Primary Care Provider Call Non-Emergent contact if: temperature is above 101, wound has increased drainage, wound has increased redness, wound has increased pain, you have any medication questions . . "Provider Documentation" section prepared by Milo Gates PA-C. Core Measure Problem Core Measures: None
--- NOTE | 2016-07-31 15:09 | PROGRESS NOTE ---
DATE: 07/31/2016 Postop check. The patient seen just as she was leaving the recovery room. At this point in time, she denies chest pain, shortness of breath, nausea, vomiting, fever, headache. She notes that she wants to get back to her room. She is pleasantly confused. This is her baseline. PHYSICAL EXAMINATION: VITAL SIGNS: Stable. She is afebrile. ABDOMEN: Soft, nontender. EXTREMITIES: Upper extremities without change. Lower extremities revealed the hip dressing to be clean, dry and intact. Range of motion of the hip is supple and pain free. Leg lengths are stable and alignment is excellent. ASSESSMENT: Status post open reduction and internal fixation of intertrochanteric hip fracture. At this point in time she needs to have maximum medical management to protect her from her own dementia and her ability to get out of bed. Discussed this with the charge nurse Oriana. Deep venous thrombosis prophylaxis per medicine. Will need skilled level nursing placement and can be discharged when stable from medical standpoint.
[2016-07-31] MEDS: ACETAMINOPHEN 325 MG TAB PO SCH ×2 (16:31→23:53)
[2016-07-31] MEDS: CLINDAMYCIN IV 600 MG in DEXTROSE 5% ADD-VANTAGE 50ML 50 ML IV SCH ×2 (16:35→23:53)
--- NOTE | 2016-07-31 17:23 | OPERATIVE REPORT ---
DATE OF OPERATION: 07/31/2016 PREOPERATIVE DIAGNOSIS: Right hip intertrochanteric fracture. POSTOPERATIVE DIAGNOSIS: Right hip same. PROCEDURE: Right hip closed reduction with open internal fixation using dynamic hip screw. SURGEON: Dr. Mejia. BILINGUAL LEGAL ASSISTANT: Milo Gates PA-C. HISTORY OF PRESENT ILLNESS: This 86-year-old white female presented to the ER and was admitted last night after falling at home. Options of surgical intervention were discussed with her family, specifically her son. They elected to proceed with surgical intervention in hopes of improving her function. OPERATION: The patient was taken to the operating room where she was given a spinal anesthetic. She was prepped and draped in the usual sterile fashion. Please see Dr. Mejia's operative report for specifics of the procedure. I was present for the entire case from initial patient positioning through final wound closure. Assistance was provided in patient positioning, fracture reduction, hardware placement, and final wound closure. The patient was taken to the recovery room in satisfactory condition. I attest to the content of the Intraoperative Record and any orders documented therein. Any exceptio ns are noted below.
[2016-07-31] MEDS: DOCUSATE SODIUM/SENNA 50/8.6MG TAB PO SCH (20:59)
[2016-07-31] MEDS: ASPIRIN 325 MG ECTAB PO SCH (20:59)
[2016-07-31] MEDS ORDERED: DOCUSATE SODIUM/SENNA 50/8.6MG TAB PO SCH ×2 (21:00)
[2016-08-01] VITALS (13 sets, daily range): BP systolic 110–146; BP diastolic 50–71; PULSE 65–93; TEMP 36.2–37; O2SAT 96–100
[2016-08-01] MEDS: SODIUM CHLORIDE 0.9% 1000ML 1,000 ML IV SCH (04:19)
[2016-08-01] MEDS: ACETAMINOPHEN 325 MG TAB PO SCH ×4 (05:53→23:53)
[2016-08-01 07:00] LABS: BUN/CREATININE RATIO 17.6 (10-20); CALCIUM 7.4 mg/dl (8.5-10.1); CREATININE 1.6 mg/dl (0.60-1.20); POTASSIUM 4.3 mmol/L (3.5-5.1)
[2016-08-01 07:27] LABS: HEMATOCRIT 22.4 % (37-47); MEAN CELL VOLUME 91.8 fL (80-100); MEAN CORPUSCULAR HEMOGLOBIN 30.7 pg (25-34); MEAN CORPUSCULAR HGB CONC 33.5 g/dl (32-36); MEAN PLATELET VOLUME 9.1 fL (7.4-10.4); PLATELET COUNT 95 K/uL (130-400); PLT ESTIMATE DECREASED; RED BLOOD COUNT 2.44 M/uL (4.2-5.4); WHITE BLOOD COUNT 8.65 K/uL (4.8-10.8)
--- NOTE | 2016-08-01 08:49 | PROGRESS NOTE ---
DATE: 08/01/2016 DATE: 08/01/2016. Postop day #1 status post closed reduction internal fixation for intertrochanteric fracture of her right hip. At this point in time, the patient is resting comfortably in bed. She is pleasantly demented. She is disoriented. She denies any new pains. Cranial nerve exam without change. Head and neck without tenderness. She can move upper extremities at the hand and wrist without any pain. Her shoulders are without any gross change. She has bilateral rotator cuff deficiencies and has end-stage degenerative changes there by x-ray. She has superior migration of the humeral heads indicating complete rotator cuff arthropathy. Abdomen soft, nontender, Calves are soft, nontender. Knee exam reveals replacements without any gross changes, just some minor bruising about the right knee. There is no patellar fracture. The extensor mechanism is intact. Neurovascular check distally is normal. Hip well. Wound dressing clean, dry and intact. We will leave that in place today. Supple hip motion is without pain. Again, vital signs are stable. She is afebrile. Her oxygenation is excellent on 2 liters. She is not tachycardic. LABORATORY today reveals electrolytes to be good. Her BUN has dropped from 39 to 28. Her creatinine has dropped from 2.6 to 1.6 indicating improved hydration. Her hematocrit has dropped to 22.4 based on fracture, blood loss, surgical blood loss and hydration. INR was not checked today. ASSESSMENT: Stable status post closed reduction internal fixation of intertrochanteric fracture of her right hip. At this point in time, due to her decreased hematocrit which is based on 3 entities fracture loss, surgical loss and hydration dilution would suggest 1 unit of blood just to give her some reserve since she is so frail. Will need help with eating. DVT prophylaxis. I would use subQ heparin at this point in time. Would not use any aspirin based on gastric potential as she does not eat well. Will follow with PT/OT today. More and likely, she will need care home care for an extended period of time. Living will has been presented by her son. Continue with supportive care. No heroic measures per their request.
[2016-08-01] MEDS ORDERED: ACETAMINOPHEN 325 MG TAB PO ONE (09:00)
[2016-08-01] MEDS: BUDESONIDE/FORMOTEROL FUMARATE 160/4.5 60 PUFFS/INHALER INH SCH ×2 (09:11→20:50)
[2016-08-01] MEDS: ASPIRIN 325 MG ECTAB PO SCH ×2 (09:11→20:52)
[2016-08-01] MEDS: METOPROLOL SUCC 25MG EXT REL TAB PO SCH (09:12)
[2016-08-01] MEDS: SERTRALINE HCL 50 MG TAB PO SCH (09:13)
[2016-08-01] MEDS: HEPARIN SOD 5000 UNIT/0.5 ML CARP SQ SCH ×2 (09:17→20:53)
[2016-08-01 14:54] LABS: HEMATOCRIT 29.6 % (37-47)
--- NOTE | 2016-08-01 15:36 | Progress Note ---
Subjective Date of Service: Aug 01, 2016. Subjective Pt evaluation today including: conversation w/ patient, physical exam, lab review, conversation w/ lending consultant, review of inpatient medication list Pain: less hip pain today PO Intake: poor, but improving Voiding: henderson catheter in place patient doing well overall POD #1, less pain no chest pain, no dyspnea, no vomiting H/H dropped, likely dilutional from aggressive IV fluids on admission transfused one unit, up to Hb of 10 in the afternoon appreciate orthopedic surgery note from Dr. Mejia Problem List Medical Problems: (1) Abrasion of shoulder, right Status: Acute (2) Gastroenteritis Status: Acute (3) Hip fracture, right Status: Acute (4) Nausea, vomiting and diarrhea Status: Acute (5) Renal failure Status: Acute Review of Systems Constitutional: + fatigue, + weakness Respiratory: + dyspnea on exertion Musculoskeletal: + joint pain (right hip) Neurologic: + memory loss, + weakness All Other Systems: Reviewed and Negative Medications Current Inpatient Medications Medications (Trade) Dose Ordered Sig/Jose M Route Start Time Stop Time Status Last Admin Dose Admin Al Hydrox/Mg Hydrox/Simethicone (Maalox Max Susp) 15 ml Q4H PRN PO 07/30/16 23:45 08/29/16 23:44 Budesonide/ Formoterol Fumarate (Symbicort 160/ 4.5 Inh) 2 puffs BID INH 07/31/16 09:00 08/30/16 08:59 08/01/16 09:11 2 PUFFS Prednisone (PredniSONE TAB) 5 mg DAILY PO 07/31/16 09:00 08/30/16 08:59 08/01/16 09:11 5 MG Sertraline HCl (Zoloft Tab) 75 mg DAILY PO 07/31/16 09:00 08/30/16 08:59 08/01/16 09:13 75 MG Ondansetron HCl (Zofran Inj) 4 mg Q6H PRN IV 07/31/16 10:30 08/30/16 10:29 Oxycodone HCl (Roxicodone Immediate Rel Tab) 5 mg Q4H PRN PO 07/31/16 10:30 08/14/16 10:29 Oxycodone HCl (Roxicodone Immediate Rel Tab) 10 mg Q4H PRN PO 07/31/16 10:30 08/14/16 10:29 Morphine Sulfate (MoRPHine SULFATE INJ) 2 mg Q2H PRN IV 07/31/16 10:30 08/14/16 10:29 07/31/16 16:52 2 MG Naloxone HCl (Narcan Inj) 0.4 mg Q1M PRN IV 07/31/16 10:30 08/30/16 10:29 Senna/Docusate Sodium (Senokot S Tab) 2 tab HS PO 07/31/16 21:00 08/30/16 20:59 07/31/16 20:59 2 TAB Magnesium Hydroxide (Milk Of Magnesia Susp) 30 ml DAILY PRN PO 07/31/16 10:30 08/30/16 10:29 Bisacodyl (Dulcolax Supp) 10 mg DAILY PRN [place] 07/31/16 10:30 08/30/16 10:29 Acetaminophen (Tylenol Tab) 650 mg Q6 PO 07/31/16 16:30 08/30/16 16:29 08/01/16 05:53 650 MG Metoprolol Succinate (Toprol Xl Tab) 25 mg DAILY PO 08/01/16 09:00 08/31/16 08:59 08/01/16 09:12 25 MG Aspirin (Ecotrin Tab) 325 mg BID PO 07/31/16 21:00 08/30/16 20:59 08/01/16 09:11 325 MG Heparin Sodium (Porcine) (Heparin Sq 5000 Unit/0.5ml) 5,000 unit Q12 SQ 08/01/16 09:00 08/31/16 08:59 08/01/16 09:17 5,000 UNIT Objective Vital Signs Date Time Temp Pulse Resp B/P Pulse Ox O2 Delivery O2 Flow Rate FiO2 08/01/16 15:25 36.8 65 16 118/62 100 Room Air 08/01/16 13:55 36.4 66 16 119/63 98 08/01/16 12:50 36.4 72 16 126/71 96 08/01/16 11:55 36.5 71 16 131/68 100 2.0 08/01/16 11:18 36.5 73 16 110/62 100 2.0 08/01/16 10:55 36.2 77 16 112/50 100 2.0 08/01/16 10:42 36.7 78 16 116/56 100 2.0 08/01/16 10:20 36.8 74 16 112/62 08/01/16 10:00 36.8 80 16 112/62 100 Nasal Cannula 2.0 08/01/16 08:25 100 Nasal Cannula 2.0 08/01/16 08:16 Nasal Cannula 2.0 08/01/16 07:53 36.9 80 16 110/64 100 Nasal Cannula 2.0 08/01/16 03:33 37.0 71 17 111/64 100 Nasal Cannula 2.0 07/31/16 23:50 Nasal Cannula 2.0 07/31/16 23:29 36.9 81 15 106/64 100 Nasal Cannula 2.0 07/31/16 20:30 37.1 74 18 113/62 99 Nasal Cannula 2.0 07/31/16 17:00 36.5 73 16 121/56 100 Nasal Cannula 2.0 07/31/16 16:06 37.1 83 16 170/69 100 Nasal Cannula 2.0 Physical Exam General Appearance: no apparent distress, + thin Eyes: normal inspection, EOMI, sclerae normal ENT: normal ENT inspection, hearing grossly normal, pharynx normal Neck: supple, no adenopathy, no JVD, trachea midline Respiratory/Chest: chest non-tender, lungs clear, no respiratory distress, no accessory muscle use, + decreased breath sounds (bases) Cardiovascular: regular rate, rhythm, no edema, no gallop, no JVD, no murmur Abdomen: normal bowel sounds, non tender, soft, no organomegaly Extremities: no pedal edema, no calf tenderness, normal capillary refill, pelvis stable, + pertinent finding (right hip tender, decreased ROM) Neurologic/Psychiatric: campus interviews intern II-XII nml as tested, alert, normal mood/affect, oriented x 3, + motor weakness (generalized) Skin: + pallor Lymphatic: no adenopathy Laboratory Results Last 24 Hours Test 08/01/16 06:00 08/01/16 14:40 White Blood Count 8.65 K/uL Red Blood Count 2.44 M/uL Hemoglobin 7.5 g/dL 10.0 g/dL Hematocrit 22.4 % 29.6 % Mean Corpuscular Volume 91.8 fL Mean Corpuscular Hemoglobin 30.7 pg Mean Corpuscular Hemoglobin Concent 33.5 g/dl RDW Standard Deviation 48.8 fL RDW Coefficient of Variation 14.4 % Platelet Count 95 K/uL Mean Platelet Volume 9.1 fL Platelet Estimate DECREASED Sodium Level 142 mmol/L Potassium Level 4.3 mmol/L Chloride Level 111 mmol/L Carbon Dioxide Level 24 mmol/L Anion Gap 7.0 mmol/L Blood Urea Nitrogen 28 mg/dl Creatinine 1.60 mg/dl Est Creatinine Clear Calc Drug Dose 19.3 ml/min Estimated GFR () 33.7 Estimated GFR (Non- 29.1 BUN/Creatinine Ratio 17.6 Random Glucose 82 mg/dl Calcium Level 7.4 mg/dl Assessment and Plan - Right femur fracture, s/p CRIF with hip screw 07/31, POD #1 pain control with scheduled Tylenol, prn Oxycodone, Morphine for breakthrough , no pain issues today IV fluids, WBAT, therapy consulted DVT prophylaxis with heparin SC - Acute blood loss anemia from surgery/fracture, likely some dilution Hb 7.5 this AM, transfused one unit, Hb up to 10.0 this afternoon follow H/H - MENA on CKD stage IV: Cr improved to 1.8, continue IV fluids, stop fluids tomorrow to prevent volume overload - HTN: BP low normal now, decrease Toprol to 25mg daily and d/c Norvasc - 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
[2016-08-01] MEDS: DOCUSATE SODIUM/SENNA 50/8.6MG TAB PO SCH (20:52)
[2016-08-02] MEDS: ACETAMINOPHEN 325 MG TAB PO SCH ×4 (05:36→23:59)
[2016-08-02 08:04] VITALS: BP 134/61; PULSE 84; TEMP 37; O2SAT 97
--- NOTE | 2016-08-02 08:10 | PROGRESS NOTE ---
DATE: 08/02/2016 SUBJECTIVE: Postop day #2 status post internal fixation right intratrochanteric hip fracture. At this point in time, the patient is sitting up in bed comfortably with a smile on her face. She does have her usual baseline facial asymmetry, nothing new. She denies any headache, shortness of breath, nausea, vomiting, chest pain or chills, or fever. She notes that she ate some food yesterday. She states she is hungry already this morning. OBJECTIVE: VITAL SIGNS: Stable. ABDOMEN: Exam reveals no tenderness. EXTREMITIES: Leg exam reveals no calf tenderness, has some prepatellar swelling consistent with edema tracking down the leg. There is no pain with moving the knee. There is no pain with log rolling the hip. Dressing is changed, expected drainage on the dressing nothing that is actively bleeding. New dressing applied. Hip range of motion is supple. LABORATORY DATA: No laboratory work drawn to this point. Post hematocrit transfusion 1 unit yesterday is 29.6. Hand has been discontinued. ASSESSMENT AND PLAN: Overall improving nicely. MACHINE BASTER states that she sat up in bed and stood on her feet yesterday. We will continue with PT, OT. Can be transferred back to a skilled level nursing facility at medicine's decision from orthopedic perspective can go. Deep vein thrombosis prophylaxis again per medicine would avoid Coumadin, Xarelto, etc, based on her fall risk. We will likely go with heparin for several weeks until she is more mobile. SubQ heparin at this point in time would be sufficient. If she is discharged or transferred today or tomorrow, she can follow up in our office in 2 weeks.
[2016-08-02] MEDS: BUDESONIDE/FORMOTEROL FUMARATE 160/4.5 60 PUFFS/INHALER INH SCH ×2 (09:11→20:52)
[2016-08-02] MEDS: ASPIRIN 325 MG ECTAB PO SCH ×2 (09:11→20:52)
[2016-08-02] MEDS: HEPARIN SOD 5000 UNIT/0.5 ML CARP SQ SCH ×2 (09:23→20:55)
[2016-08-02] MEDS: SERTRALINE HCL 50 MG TAB PO SCH (09:25)
[2016-08-02] MEDS: METOPROLOL SUCC 25MG EXT REL TAB PO SCH (09:53)
[2016-08-02 10:04] LABS: HEMATOCRIT 26.3 % (37-47); MEAN CELL VOLUME 88.6 fL (80-100); MEAN CORPUSCULAR HEMOGLOBIN 29.6 pg (25-34); MEAN CORPUSCULAR HGB CONC 33.5 g/dl (32-36); MEAN PLATELET VOLUME 9.1 fL (7.4-10.4); PLATELET COUNT 118 K/uL (130-400); RED BLOOD COUNT 2.97 M/uL (4.2-5.4); WHITE BLOOD COUNT 10.72 K/uL (4.8-10.8)
[2016-08-02 10:28] LABS: BUN/CREATININE RATIO 16.7 (10-20); CALCIUM 8.1 mg/dl (8.5-10.1); POTASSIUM 4.2 mmol/L (3.5-5.1)
--- NOTE | 2016-08-02 11:51 | Progress Note ---
Subjective Date of Service: Aug 02, 2016. Subjective Pt evaluation today including: conversation w/ patient, physical exam, lab review, conversation w/ human capital consultant, review of inpatient medication list Pain: denies right hip pain today PO Intake: adequate Voiding: no voiding problems patient feeling well, no issues overnight, denies hip pain, eating well per RN she denies difficulty breathing cleared for discharge by ortho, needs placement and won't happen over the weekend Problem List Medical Problems: (1) Abrasion of shoulder, right Status: Acute (2) Gastroenteritis Status: Acute (3) Hip fracture, right Status: Acute (4) Nausea, vomiting and diarrhea Status: Acute (5) Renal failure Status: Acute Review of Systems Constitutional: + fatigue, + weakness Neurologic: + memory loss, + weakness All Other Systems: Reviewed and Negative Medications Current Inpatient Medications Medications (Trade) Dose Ordered Sig/Jose M Route Start Time Stop Time Status Last Admin Dose Admin Al Hydrox/Mg Hydrox/Simethicone (Maalox Max Susp) 15 ml Q4H PRN PO 07/30/16 23:45 08/29/16 23:44 Budesonide/ Formoterol Fumarate (Symbicort 160/ 4.5 Inh) 2 puffs BID INH 07/31/16 09:00 08/30/16 08:59 08/02/16 09:11 2 PUFFS Prednisone (PredniSONE TAB) 5 mg DAILY PO 07/31/16 09:00 08/30/16 08:59 08/02/16 09:12 5 MG Sertraline HCl (Zoloft Tab) 75 mg DAILY PO 07/31/16 09:00 08/30/16 08:59 08/02/16 09:25 75 MG Ondansetron HCl (Zofran Inj) 4 mg Q6H PRN IV 07/31/16 10:30 08/30/16 10:29 Oxycodone HCl (Roxicodone Immediate Rel Tab) 5 mg Q4H PRN PO 07/31/16 10:30 08/14/16 10:29 Oxycodone HCl (Roxicodone Immediate Rel Tab) 10 mg Q4H PRN PO 07/31/16 10:30 08/14/16 10:29 Morphine Sulfate (MoRPHine SULFATE INJ) 2 mg Q2H PRN IV 07/31/16 10:30 08/14/16 10:29 07/31/16 16:52 2 MG Naloxone HCl (Narcan Inj) 0.4 mg Q1M PRN IV 07/31/16 10:30 08/30/16 10:29 Senna/Docusate Sodium (Senokot S Tab) 2 tab HS PO 07/31/16 21:00 08/30/16 20:59 08/01/16 20:52 2 TAB Magnesium Hydroxide (Milk Of Magnesia Susp) 30 ml DAILY PRN PO 07/31/16 10:30 08/30/16 10:29 Bisacodyl (Dulcolax Supp) 10 mg DAILY PRN [place] 07/31/16 10:30 08/30/16 10:29 Acetaminophen (Tylenol Tab) 650 mg Q6 PO 07/31/16 16:30 08/30/16 16:29 08/02/16 11:38 650 MG Metoprolol Succinate (Toprol Xl Tab) 25 mg DAILY PO 08/01/16 09:00 08/31/16 08:59 08/02/16 09:53 25 MG Aspirin (Ecotrin Tab) 325 mg BID PO 07/31/16 21:00 08/30/16 20:59 08/02/16 09:11 325 MG Heparin Sodium (Porcine) (Heparin Sq 5000 Unit/0.5ml) 5,000 unit Q12 SQ 08/01/16 09:00 08/31/16 08:59 08/02/16 09:23 5,000 UNIT Objective Vital Signs Date Time Temp Pulse Resp B/P Pulse Ox O2 Delivery O2 Flow Rate FiO2 08/02/16 08:30 Nasal Cannula 2.0 08/02/16 08:04 37.0 84 16 134/61 97 Room Air 08/01/16 23:50 Room Air 08/01/16 22:52 36.9 93 12 146/56 96 Room Air 08/01/16 19:30 Room Air 08/01/16 16:29 Room Air 08/01/16 15:25 36.8 65 16 118/62 100 Room Air 08/01/16 13:55 36.4 66 16 119/63 98 08/01/16 12:50 36.4 72 16 126/71 96 08/01/16 11:55 36.5 71 16 131/68 100 2.0 Physical Exam General Appearance: no apparent distress, + thin Eyes: normal inspection, EOMI, sclerae normal ENT: normal ENT inspection, hearing grossly normal, pharynx normal Neck: supple, no adenopathy, no JVD, trachea midline Respiratory/Chest: chest non-tender, lungs clear, normal breath sounds, no respiratory distress, no accessory muscle use Cardiovascular: regular rate, rhythm, no edema, no gallop, no JVD, no murmur Abdomen: normal bowel sounds, non tender, soft, no organomegaly Extremities: normal inspection, no pedal edema, no calf tenderness, pelvis stable, + pertinent finding (right hip slightly tender) Neurologic/Psychiatric: hatch supervisor II-XII nml as tested, no motor/sensory deficits, alert, normal mood/affect, + pertinent finding (confusion at baseline) Skin: normal color, warm/dry, no rash Laboratory Results Last 24 Hours Test 08/01/16 14:40 08/02/16 09:41 Hemoglobin 10.0 g/dL 8.8 g/dL Hematocrit 29.6 % 26.3 % White Blood Count 10.72 K/uL Red Blood Count 2.97 M/uL Mean Corpuscular Volume 88.6 fL Mean Corpuscular Hemoglobin 29.6 pg Mean Corpuscular Hemoglobin Concent 33.5 g/dl RDW Standard Deviation 48.6 fL RDW Coefficient of Variation 14.9 % Platelet Count 118 K/uL Mean Platelet Volume 9.1 fL Sodium Level 142 mmol/L Potassium Level 4.2 mmol/L Chloride Level 109 mmol/L Carbon Dioxide Level 23 mmol/L Anion Gap 10.0 mmol/L Blood Urea Nitrogen 33 mg/dl Creatinine 2.00 mg/dl Est Creatinine Clear Calc Drug Dose 15.5 ml/min Estimated GFR () 25.7 Estimated GFR (Non- 22.2 BUN/Creatinine Ratio 16.7 Random Glucose 129 mg/dl Calcium Level 8.1 mg/dl Assessment and Plan - Right femur fracture, s/p CRIF with hip screw 07/31, POD #2 pain control with scheduled Tylenol, no narcotics needed, will discontinue IV fluids stopped, WBAT, cleared for d/c from ortho standpoint DVT prophylaxis with heparin SC should be continued for one month post op at [facility] Dr. 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
[2016-08-02 15:18] VITALS: BP 160/81; PULSE 98; TEMP 36.5; O2SAT 97
[2016-08-02] MEDS: DOCUSATE SODIUM/SENNA 50/8.6MG TAB PO SCH (20:53)
[2016-08-02 23:59] VITALS: BP 147/76; PULSE 108; TEMP 36.8; O2SAT 93
[2016-08-03] VITALS (9 sets, daily range): BP systolic 127–172; BP diastolic 52–85; PULSE 66–89; TEMP 36.3–37; O2SAT 96–98
[2016-08-03] MEDS: ACETAMINOPHEN 325 MG TAB PO SCH ×4 (05:23→23:41)
[2016-08-03 07:26] LABS: BASO % 0.1 %; BASO ABS # 0.01 K/uL (0-0.2); HEMATOCRIT 21.7 % (37-47); IG% 0.4 %; LYMPH % 5.5 %; LYMPH ABS # 0.45 K/uL (1.2-3.4); MEAN CORPUSCULAR HEMOGLOBIN 30.7 pg (25-34); MEAN CORPUSCULAR HGB CONC 34.1 g/dl (32-36); MEAN PLATELET VOLUME 8.6 fL (7.4-10.4); MONO % 8.3 %; NEUT % 84.7 %; PLATELET COUNT 112 K/uL (130-400); RED BLOOD COUNT 2.41 M/uL (4.2-5.4); WHITE BLOOD COUNT 8.24 K/uL (4.8-10.8)
--- NOTE | 2016-08-03 07:31 | Anesthesiology Progress Note ---
Anesthesia Post Op Note Date & Time Aug 03, 2016 at 07:30 Vital Signs Pain Intensity: 0.0 Vital Signs Past 12 Hours Date Time Temp Pulse Resp B/P Pulse Ox O2 Delivery O2 Flow Rate FiO2 08/02/16 23:59 36.8 108 16 147/76 93 Room Air 08/02/16 23:45 Room Air Notes Mental Status: alert / awake / arousable, participated in evaluation Pt Amnestic to Procedure: Yes Nausea / Vomiting: adequately controlled Pain: adequately controlled Airway Patency, RR, SpO2: stable & adequate BP & HR: stable & adequate Hydration State: stable & adequate Neuraxial Anesthesia: sensory block resolved Anesthetic Complications: no major complications apparent
--- NOTE | 2016-08-03 07:51 | PROGRESS NOTE ---
DATE: 08/03/2016 SUBJECTIVE: Postop day #3, status post internal fixation of intertrochanteric fracture of her right hip. At this point in time, the patient is resting comfortably in bed. She is pleasantly confused. She is oriented to person. She notes no chest pain, shortness of breath, fever, nausea, vomiting or headache. She denies any extremity pain. OBJECTIVE: VITAL SIGNS: Stable. She is afebrile. Gets a little agitated from time to time. ABDOMEN: Soft, nontender. EXTREMITIES: Legs, calves soft, nontender. Swelling in the right thigh diminishing nicely. Wound dressing clean, dry and intact. LABORATORY DATA: The a.m. laboratory work is pending. ASSESSMENT: Overall, doing well. If laboratory work is stable, can discharge per medicine. Transfer back to a SNF facility. Follow up with me in roughly 2 weeks.
[2016-08-03 07:55] LABS: BUN/CREATININE RATIO 20.7 (10-20); CREATININE 1.8 mg/dl (0.60-1.20); MAGNESIUM 1.9 mg/dl (1.8-2.4); POTASSIUM 4.4 mmol/L (3.5-5.1)
[2016-08-03] MEDS: ASPIRIN 325 MG ECTAB PO SCH ×2 (09:14→21:31)
[2016-08-03] MEDS: BUDESONIDE/FORMOTEROL FUMARATE 160/4.5 60 PUFFS/INHALER INH SCH ×2 (09:14→21:31)
[2016-08-03] MEDS: AMLODIPINE BESYLATE 5 MG TAB PO SCH (09:15)
[2016-08-03] MEDS: SERTRALINE HCL 50 MG TAB PO SCH (09:16)
[2016-08-03] MEDS: METOPROLOL SUCC 50MG EXT REL TAB PO SCH (09:16)
[2016-08-03] MEDS: HEPARIN SOD 5000 UNIT/0.5 ML CARP SQ SCH (09:17)
[2016-08-03 14:29] LABS: COMPLETE YES
--- NOTE | 2016-08-03 15:03 | Family Medicine Progress Note ---
Progress Note Date of Service Aug 03, 2016. Subjective Pt evaluation today including: conversation w/ patient, physical exam, chart review, lab review, review of studies Pain: No pain reported this morning Voiding: no voiding problems, no incontinence Constitutional: No chills, No fever Respiratory: No cough, No shortness of breath, No sputum Cardiovascular: No chest pain Abdomen: No nausea, No pain, No vomiting Female : No dysuria Medications Current Inpatient Medications Medications (Trade) Dose Ordered Sig/Jose M Route Start Time Stop Time Status Last Admin Dose Admin Al Hydrox/Mg Hydrox/Simethicone (Maalox Max Susp) 15 ml Q4H PRN PO 07/30/16 23:45 08/29/16 23:44 Budesonide/ Formoterol Fumarate (Symbicort 160/ 4.5 Inh) 2 puffs BID INH 07/31/16 09:00 08/30/16 08:59 08/03/16 09:14 2 PUFFS Prednisone (PredniSONE TAB) 5 mg DAILY PO 07/31/16 09:00 08/30/16 08:59 08/03/16 09:15 5 MG Sertraline HCl (Zoloft Tab) 75 mg DAILY PO 07/31/16 09:00 08/30/16 08:59 08/03/16 09:16 75 MG Ondansetron HCl (Zofran Inj) 4 mg Q6H PRN IV 07/31/16 10:30 08/30/16 10:29 Morphine Sulfate (MoRPHine SULFATE INJ) 2 mg Q2H PRN IV 07/31/16 10:30 08/14/16 10:29 07/31/16 16:52 2 MG Naloxone HCl (Narcan Inj) 0.4 mg Q1M PRN IV 07/31/16 10:30 08/30/16 10:29 Senna/Docusate Sodium (Senokot S Tab) 2 tab HS PO 07/31/16 21:00 08/30/16 20:59 08/02/16 20:53 2 TAB Magnesium Hydroxide (Milk Of Magnesia Susp) 30 ml DAILY PRN PO 07/31/16 10:30 08/30/16 10:29 Bisacodyl (Dulcolax Supp) 10 mg DAILY PRN [place] 07/31/16 10:30 08/30/16 10:29 Acetaminophen (Tylenol Tab) 650 mg Q6 PO 07/31/16 16:30 08/30/16 16:29 08/03/16 12:27 650 MG Aspirin (Ecotrin Tab) 325 mg BID PO 07/31/16 21:00 08/30/16 20:59 08/03/16 09:14 325 MG Heparin Sodium (Porcine) (Heparin Sq 5000 Unit/0.5ml) 5,000 unit Q12 SQ 08/01/16 09:00 08/31/16 08:59 08/03/16 09:17 5,000 UNIT Metoprolol Succinate (Toprol Xl Tab) 50 mg DAILY PO 08/03/16 09:00 09/02/16 08:59 08/03/16 09:16 50 MG Amlodipine Besylate (Norvasc Tab) 2.5 mg QAM PO 08/03/16 09:00 09/02/16 08:59 08/03/16 09:15 2.5 MG Objective Vital Signs Date Time Temp Pulse Resp B/P Pulse Ox O2 Delivery O2 Flow Rate FiO2 08/03/16 14:23 37.0 85 18 150/65 96 08/03/16 09:51 96 Room Air 08/03/16 07:51 36.9 89 16 150/78 96 Room Air 08/03/16 07:40 Room Air 08/02/16 23:59 36.8 108 16 147/76 93 Room Air 08/02/16 23:45 Room Air 08/02/16 16:14 Room Air 08/02/16 15:18 36.5 98 18 160/81 97 Room Air Physical Exam General Appearance: WD/WN, no apparent distress Eyes: normal inspection, sclerae normal Neck: supple, no carotid bruits, trachea midline Respiratory/Chest: chest non-tender, lungs clear, normal breath sounds, no respiratory distress, no accessory muscle use Cardiovascular: regular rate, rhythm, no gallop, no murmur Abdomen: normal bowel sounds, non tender, soft Extremities: non-tender, no calf tenderness, + swelling (Pitting edema in right leg up to knee), + pertinent finding (Dressing over right hip c/d/i) Neurologic/Psychiatric: alert, normal mood/affect, oriented x 3 Skin: normal color, no rash Laboratory Results Results Past 24 Hours Test 08/03/16 07:06 Range/Units White Blood Count 8.24 4.8-10.8 K/uL Red Blood Count 2.41 4.2-5.4 M/uL Hemoglobin 7.4 12.0-16.0 g/dL Hematocrit 21.7 37-47 % Mean Corpuscular Volume 90.0 80-100 fL Mean Corpuscular Hemoglobin 30.7 25-34 pg Mean Corpuscular Hemoglobin Concent 34.1 32-36 g/dl Platelet Count 112 130-400 K/uL Mean Platelet Volume 8.6 7.4-10.4 fL Neutrophils (%) (Auto) 84.7 % Lymphocytes (%) (Auto) 5.5 % Monocytes (%) (Auto) 8.3 % Eosinophils (%) (Auto) 1.0 % Basophils (%) (Auto) 0.1 % Neutrophils # (Auto) 6.99 1.4-6.5 K/uL Lymphocytes # (Auto) 0.45 1.2-3.4 K/uL Monocytes # (Auto) 0.68 0.11-0.59 K/uL Eosinophils # (Auto) 0.08 0-0.5 K/uL Basophils # (Auto) 0.01 0-0.2 K/uL RDW Standard Deviation 50.2 36.4-46.3 fL RDW Coefficient of Variation 15.2 11.5-14.5 % Immature Granulocyte % (Auto) 0.4 % Immature Granulocyte # (Auto) 0.03 0.00-0.02 K/uL Red Blood Cell Morphology Unremarkable Sodium Level 143 136-145 mmol/L Potassium Level 4.4 3.5-5.1 mmol/L Chloride Level 111 98-107 mmol/L Carbon Dioxide Level 24 21-32 mmol/L Anion Gap 8.0 3-11 mmol/L Blood Urea Nitrogen 37 7-18 mg/dl Creatinine 1.80 0.60-1.20 mg/dl Est Creatinine Clear Calc Drug Dose 17.2 ml/min Estimated GFR () 29.2 Estimated GFR (Non- 25.2 BUN/Creatinine Ratio 20.7 10-20 Random Glucose 90 70-99 mg/dl Calcium Level 8.0 8.5-10.1 mg/dl Magnesium Level 1.9 1.8-2.4 mg/dl Assessment and Plan Patient is an 86 year old female POD #3 s/p internal fixation of intertrochanteric fracture of the R hip. Patient is oriented to person and place but not time. [facility]. Patient has tolerated the surgery well and will be scheduled for follow up with Dr. Mejia in 2 weeks. Her hemoglobin appears to be 7.4 this afternoon and based on previous H/H levels we believe is 2/2 blood loss from surgery in addition to fluid dilution. In any case we will transfuse 1 unit of PRBC with plans to discharge tomorrow. 1) POD #3 s/p internal fixation of intertrochanteric hip fracture - Discharge to [facility] - No complaints of pain this morning 2) Anemia 2/2 surgical loss + fluid dilution - 1 unit PRBC transfusion - CBC tomorrow morning 3) Hypertension - Toprol XL 50mg PO Daily - Norvasc 25mg qAM 4) Pain - Tylenol 650mg q6 - Morphine 2mg q2h PRN 5) DVT prophylaxis - Heparin SC - Continue for 1 month (including at [facility]) 6) Seronegative Rheumatoid Arthritis - Prednisone 5mg daily 7) Code Status - DNR Reviewed: Pt Seen/Exam by Me History Resident Physician Supervision Note: I interviewed and examined the patient. Discussed with Dr. Leal and agree with findings and plan as documented in the note. Any exceptions or clarifications are listed here: Patient has no complaints, she is pleasantly confused. Her son is in the room and says she is at her baseline as far as orientation. She is sitting in the chair eating dinner. She tolerated her PRBC transfusion well today. She and her son and the nursing staff deny any melena or hematochezia, no hematemesis, no hematuria. Vitals reviewed, hypertensive No acute distress, sitting in chair Regular rate and rhythm, loud S2 no murmurs gallops or rubs Clear to auscultation bilaterally, no wheezes crackles or rhonchi Abdomen soft nontender nondistended positive bowel sounds Extremities 1+ pitting edema right leg, some ecchymosis in the distal thigh, dressing intact and clean 86-year-old female status post right hip fracture ORIF now postop day 3, with acute kidney injury and anemia. -For her anemia, it does not appear as per orthopedics that she is having any bleeding at the surgical site and her hemoglobin is trending down in the 7 range for the second time postoperatively. The microscopic loss in the GI tract.-Check Hemoccult stool, follow CBC in the morning. Most likely discharged to [place] in the morning with plans for a repeat CBC in 2-3 days. Recommend stop heparin subcutaneous and only using aspirin twice a day for DVT prophylaxis -Postop management as per orthopedics, follow up with them in 2 weeks -Kidney injury is much improved and she is back to her baseline creatinine of 1.8 as she has CKD stage III and anemia of chronic kidney disease Documented By: Teresa Mayfield
--- NOTE | 2016-08-03 17:37 | PROGRESS NOTE ---
DATE: 08/03/2016 HISTORY OF PRESENT ILLNESS: On afternoon rounds, the patient is pleasant, is sitting up in bed and has no major issues. Her vital signs are stable. She is afebrile. Neurovascular check both lower extremities normal. Wound dressing clean, dry and intact. Thigh is without any evidence of any increased swelling or active bleeding. ASSESSMENT AND PLAN: Is tolerating her transfusion. At this point, she has decreased her pulse from the high 80s to the mid 60s. At this point in time, her blood loss source is not her femur. The thigh is not increasing in size and the wound is clean and dry. I suggest observation for gastrointestinal potential loss at this point from stress. There has been no significant melena or hematochezia noted. We will continue with observation. If hematocrit stable tomorrow, can likely be discharged. May need to reconsider use of heparin.
[2016-08-03] MEDS ORDERED: HydrALAZINE HCL 20 MG/ML VIAL IV. PRN (18:15)
[2016-08-03] MEDS: DOCUSATE SODIUM/SENNA 50/8.6MG TAB PO SCH (21:32)
[2016-08-04] MEDS: ACETAMINOPHEN 325 MG TAB PO SCH ×2 (05:57→12:35)
[2016-08-04 07:30] VITALS: BP 168/79; PULSE 93; TEMP 36.9; O2SAT 98
[2016-08-04 07:41] LABS: HEMATOCRIT 26.5 % (37-47); MEAN CELL VOLUME 88.3 fL (80-100); MEAN CORPUSCULAR HEMOGLOBIN 30.3 pg (25-34); MEAN CORPUSCULAR HGB CONC 34.3 g/dl (32-36); MEAN PLATELET VOLUME 8.5 fL (7.4-10.4); PLATELET COUNT 123 K/uL (130-400); WHITE BLOOD COUNT 8.77 K/uL (4.8-10.8)
[2016-08-04] MEDS: BUDESONIDE/FORMOTEROL FUMARATE 160/4.5 60 PUFFS/INHALER INH SCH (08:18)
[2016-08-04] MEDS: ASPIRIN 325 MG ECTAB PO SCH (08:19)
[2016-08-04] MEDS: AMLODIPINE BESYLATE 5 MG TAB PO SCH (08:19)
[2016-08-04] MEDS: METOPROLOL SUCC 50MG EXT REL TAB PO SCH (08:20)
[2016-08-04] MEDS: SERTRALINE HCL 50 MG TAB PO SCH (08:21)
--- NOTE | 2016-08-04 11:29 | Progress Note ---
Orthopedic SOAP Note Subjective Date of Service: Aug 04, 2016. 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 Problem List Medical Problems: (1) Abrasion of shoulder, right Status: Acute (2) Gastroenteritis Status: Acute (3) Hip fracture, right Status: Acute (4) Nausea, vomiting and diarrhea Status: Acute (5) Renal failure Status: Acute Objective calves soft nontender, N/V intact, capillary refill less than 2 sec., dressing C /D/I (I changed dressing today, fair amount of blood on dressing), incision C/D/ I (notable amount of bruising on lateral aspect of right thigh, thigh is soft and supple, no swelling), A&O x3, toes mobile resting comfortably in bed pleasantly confused NAD Date Time Temp Pulse Resp B/P Pulse Ox O2 Delivery O2 Flow Rate FiO2 08/04/16 07:30 98 Room Air 08/04/16 07:30 36.9 93 16 168/79 98 Room Air 08/03/16 23:45 Room Air 08/03/16 23:30 36.7 75 18 168/72 97 Room Air 08/03/16 17:53 36.6 66 16 172/67 98 08/03/16 16:34 36.8 66 18 150/85 98 08/03/16 15:38 Room Air 08/03/16 15:30 36.3 66 18 166/69 98 08/03/16 15:00 36.5 76 16 129/77 97 08/03/16 14:45 36.3 79 16 127/52 96 08/03/16 14:23 37.0 85 18 150/65 96 Laboratory Results 24 Hours: Test 08/04/16 07:31 Hematocrit 26.5 % Hemoglobin 9.1 g/dL Assessment S/P Right hip closed reduction internal fixation dynamic hip screw Plan Continue post op care Diet DVT prophylaxis with Heparin SC and mechanical device Labs and vitals reviewed H&H 9.1 & 26.5 WBAT Right lower extremity, walker, assist Pain controlled with medications PT/OT daily. Tolerated PT today for 10 minutes. Able to stand during transfers. No ambulation thus far I changed dressing today. Tolerated well. Will continue to follow accordingly
[2016-08-04] MEDS ORDERED: PANTOprazole SOD 40 MG TAB PO ONE (13:00)
[2016-08-04] MEDS ORDERED: AMLODIPINE BESYLATE 5 MG TAB PO ONE (13:00)
--- NOTE | 2016-08-04 13:09 | PROGRESS NOTE ---
DATE: 08/04/2016 DATE: 08/04/2016. SUBJECTIVE: At this point in time, the patient is sitting up in a chair, very comfortable. Has a smile on her face. She is pleasantly confused. She is alert to person and oriented to person. She notes that she is not hungry. She denies chest pain, shortness of breath, fever, chills, nausea, vomiting or leg pain. OBJECTIVE: Vital signs are stable. She is afebrile. Neurovascular check femoral sciatic nerve is grossly intact. Hip rotation pain free. The wound dressing clean, dry and intact. Laboratory work this morning reveals hematocrit is 26.5. ASSESSMENT: Overall, doing reasonably well. Transfer/discharge per medicine.
[2016-08-04] MEDS ORDERED: NRV5 PO (14:15)
[2016-08-04] MEDS ORDERED: ASPEC325 PO (14:15)
[2016-08-04] MEDS ORDERED: PRT40 PO (14:21)
[2016-08-04 15:04] VITALS: BP 147/77; PULSE 75; TEMP 36.7; O2SAT 97
[2016-08-04 15:08] VITALS: BP 147/77; PULSE 75; TEMP 36.7; O2SAT 97
[2016-08-05] MEDS ORDERED: PANTOprazole SOD 40 MG TAB PO SCH (09:00)
[2016-08-05] MEDS ORDERED: AMLODIPINE BESYLATE 5 MG TAB PO SCH (09:00)
--- NOTE | 2016-08-06 21:54 | Discharge Summary ---
Discharge Summary Date of Service Aug 06, 2016. (Landon Leal MD) Discharge Summary Admission Date: Jul 30, 2016 at 23:57 Discharge Date: Aug 04, 2016 Discharge Disposition: [facility] facility Principal Diagnosis: Right Hip Intertrochanteric Fracture Problems/Secondary Diagnoses: Anemia Hypertension Dementia Immunizations: Have You Had Influenza Vaccine: Unknown History of Tetanus Vaccine?: Unknown History of Pneumococcal: Unknown History of Hepatitis B Vaccine: Unknown (Landon Leal MD) Referrals At Discharge Follow up Referrals: Generation Technician Referral - Within 1-2 Weeks with Bro Monroy D.O. Discharge Exam Review of Systems: Constitutional: No chills, No fever Respiratory: No cough, No shortness of breath, No wheezing Cardiovascular: No chest pain Abdomen: No nausea, No pain, No vomiting Genitourinary - Female: + dysuria Physical Exam: General Appearance: WD/WN, no apparent distress, + thin Eyes: normal inspection, sclerae normal Neck: supple, no carotid bruits Respiratory/Chest: chest non-tender, lungs clear, normal breath sounds Cardiovascular: regular rate, rhythm, no gallop, no murmur Abdomen / GI: normal bowel sounds, non tender, soft Extremities: no calf tenderness, + swelling Neurologic/Psychiatric: alert Skin: + pertinent finding (dressing over right hip) (Landon Leal MD) Hospital Course Discharge Summary Patient is an 86 year old female POD #4 s/p internal fixation of intertrochanteric fracture of the R hip. She will be discharged to [facility] this afternoon and [facility] thereafter. Patient has tolerated the surgery well and will be scheduled for follow up with Dr. Mejia in 2 weeks. Her hemoglobin was 7.4 yesterday, falling for the second time during this admission. We transfused one unit of PRBCs and today her Hbg rebounded to 9.1. On further investigation her Hemoccult came back positive today so she will need a follow up CBC in 2-3 days. She will also be placed on Protonix 40mg Daily for GI prophylaxis. Her blood pressure also has been continuously elevated the last few days this morning being 168/72 so we have increased her Norvasc dose to 5mg daily. 1) POD #4 s/p internal fixation of intertrochanteric hip fracture - Discharge to [facility] - No complaints of pain this morning - Tylenol 650mg q6h for pain 2) Anemia - Acute blood loss possible 2/2 GI bleed, Chronic prednisone, and anticoagulation use - 1 unit PRBC transfusion yesterday, Hgb improved to 9.1 - Follow up CBC in 2-3 days as outpatient - Protonix 40mg PO Daily 3) Hypertension - Toprol XL 50mg PO Daily - Norvasc 2.5mg qAM --> Increased to 5mg due to consistently elevated blood pressures (chose not to increase Toprol due to occasional bradycardia) 4) Dementia - Baseline confused - Oriented to person but not to place or time 5) Pain - Tylenol 650mg q6 - Morphine 2mg q2h PRN 6) DVT prophylaxis - Remain only on Aspirin 325mg BID for the next month - Discontinued Heparin due to bleeding risk for gastritis and peptic ulcers with chronic prednisone use and recent surgery 7) Seronegative Rheumatoid Arthritis - Prednisone 5mg daily 8) Code Status - DNR Total Time Spent: Greater than 30 minutes This includes examination of the patient, discharge planning, medication reconciliation, and communication with other providers. (Landon Leal MD) Discharge Instructions Please refer to the electronic Patient Visit Report (Discharge Instructions) for additional information. (Landon Leal MD) Additional Copies To Bon Weinberg M.D. Reviewed: Pt Seen/Exam by Me (Teresa Mayfield MD) History Resident Physician Supervision Note: I interviewed and examined the patient. Discussed with Dr. Leal and agree with findings and plan as documented in the note. Any exceptions or clarifications are listed here: Patient has no complaints, she is pleasantly confused. Discussed conservative management of her occult GI bleeding--> watch CBC and started PPI, no EGD/ colonoscopy at this time unless develops overt GI bleeding Vitals reviewed, hypertensive No acute distress, sitting in chair Regular rate and rhythm, loud S2 no murmurs gallops or rubs Clear to auscultation bilaterally, no wheezes crackles or rhonchi Abdomen soft nontender nondistended positive bowel sounds Extremities 1+ pitting edema right leg, some ecchymosis in the distal thigh, dressing intact and clean 86-year-old female status post right hip fracture ORIF now postop day 4, with acute kidney injury and anemia. -For her anemia, it does not appear as per orthopedics that she is having any bleeding at the surgical site and her hemoglobin is trending down in the 7 range for the second time postoperatively. There is microscopic loss in the GI tract evidenced by +Hemoccult stool, follow CBC closely as an outpatient. -Postop management as per orthopedics, follow up with them in 2 weeks -Kidney injury is much improved and she is back to her baseline creatinine of 1.8 as she has CKD stage III and anemia of chronic kidney disease Documented By: Teresa Mayfield (Teresa Mayfield MD)
== END 2016-08-04 15:45 | DRG 481 ==
LOC: ENRESERVTM → ENRESERVDT → EDBD 20:39 → C.EDC 20:40 → C.MSN 23:57
PROVIDERS: ADMIT Hospitalist; ATTEND Family Medicine
PROC: 0QS604Z Reposition Right Upper Femur with Internal Fixation Device, Open Approach (ICD-10-PCS; principal; 2016-07-31 10:30)
DX: S72.141A Displaced intertrochanteric fracture of right femur, initial encounter for closed fracture (principal); N18.4 Chronic kidney disease, stage 4 (severe); N17.9 Acute kidney failure, unspecified; D62 Acute posthemorrhagic anemia; J44.9 Chronic obstructive pulmonary disease, unspecified; F03.90 Unspecified dementia, unspecified severity, without behavioral disturbance, psychotic disturbance, mood disturbance, and anxiety; I12.9 Hypertensive chronic kidney disease with stage 1 through stage 4 chronic kidney disease, or unspecified chronic kidney disease; E78.5 Hyperlipidemia, unspecified; I25.10 Atherosclerotic heart disease of native coronary artery without angina pectoris; G89.4 Chronic pain syndrome; Z66 Do not resuscitate; M06.09 Rheumatoid arthritis without rheumatoid factor, multiple sites; D63.1 Anemia in chronic kidney disease; W06.XXXA Fall from bed, initial encounter; Z88.0 Allergy status to penicillin; Y92.003 Bedroom of unspecified non-institutional (private) residence as the place of occurrence of the external cause; Z79.52 Long term (current) use of systemic steroids

== ENCOUNTER → 2016-08-14 | Outpatient (CLI) | payer BC, OTHER ==
[~2016-08-14] MED LIST changes: +AMLO-110 PO; -AMLO2.5T PO; +ASPEC325 PO; +CEFD1CAP14 PO; +CHOL1000 PO; -CHOL100010 PO; +FERR1TAB13 PO; +HALO0.5T9 PO; +NRV5 PO; -ONDA4TAB10 SL; +PANTPAK PO; +PRED20TA PO; +PRT40 PO; +SENN-61 PO; +SERT-234 PO
[2016-08-14 12:35] LABS: BASO % 0.2 %; BASO ABS # 0.03 K/uL (0-0.2); EOS % 0.2 %; HEMATOCRIT 30.8 % (37-47); IG% 0.4 %; LYMPH % 4.7 %; MEAN CELL VOLUME 95.1 fL (80-100); MEAN CORPUSCULAR HEMOGLOBIN 29.9 pg (25-34); MEAN PLATELET VOLUME 8.5 fL (7.4-10.4); MONO % 1.6 %; NEUT % 92.9 %; PLATELET COUNT 421 K/uL (130-400); RED BLOOD COUNT 3.24 M/uL (4.2-5.4); WHITE BLOOD COUNT 12.82 K/uL (4.8-10.8)
[2016-08-14 12:55] LABS: COMPLETE YES; MEAN CORPUSCULAR HGB CONC 31.5 g/dl (32-36)
== END | disposition home or self-care (01) ==
LOC: C.LAB1850 12:00
PROVIDERS: ATTEND Registered Nurse
DX: R19.5 Other fecal abnormalities (principal)

== ENCOUNTER → 2016-08-17 | Outpatient (CLI) | payer BC, OTHER ==
--- NOTE | 2016-08-17 11:52 | DIAGNOSTIC IMAGING REPORT ---
AP PELVIS AND RIGHT HIP 2 VIEWS CLINICAL HISTORY: Right hip fracture COMPARISON: 07/31/2016 DISCUSSION: There is an internally fixated intertrochanteric right hip fracture. Slight apparent change in orientation the fracture fragments may be secondary to differences in projection. There is no dislocation. There is an old left pubic ramus/symphysis fracture. IMPRESSION: Internally fixated intertrochanteric right hip fracture. Electronically signed by: Apollo Lazcano M.D. 08/17/2016 11:50 AM Dictated Date/Time: 08/17/2016 11:49 AM
== END | disposition home or self-care (01) ==
LOC: C.RDSM 14:31
PROVIDERS: ATTEND Physician Assistant
DX: S72.001A Fracture of unspecified part of neck of right femur, initial encounter for closed fracture (principal); X58.XXXA Exposure to other specified factors, initial encounter

== ENCOUNTER 2016-08-19 04:38 | Emergency (ER) | payer BC ==
[~2016-08-19 04:38] MED LIST changes: -AMLO-110 PO; -CEFD1CAP14 PO; -FERR1TAB13 PO; -HALO0.5T9 PO; -PANTPAK PO; -PRED20TA PO; -SENN-61 PO; -SERT-234 PO
[2016-08-19 04:41] VITALS: TEMP 36.7; Ht 160 cm
[2016-08-19] MEDS ORDERED: XYLOCAINE 1%/SOD BICARB 20 ML VIAL INFIL ONE (04:55)
--- NOTE | 2016-08-19 05:01 | EMERGENCY ROOM VISIT NOTE ---
History Report prepared by Luis Alberto: Constantin Morse Under the Supervision of: Dr. Jaden Huber D.O. First contact with patient: 04:46 Chief Complaint: LACERATION/CUT (SUT/DERMABOND) Stated Complaint: LACERATION Nursing Triage Summary: pt brought to ed via ems from the [facility]. per ems the nurse found drainage coming from pts left leg under her bucky hose while doing rounds. pt was found to have a lac to left lower leg. pt reports that she does not know how it got there. pt is non ambulatory after a recent right hip fracture. denies any fall/injury. denies pain. History of Present Illness The patient is a 86 year old female who presents to the Emergency Room via EMS with complaints of a laceration to the left lower lateral leg. The patient lives at [facility]. A nurse was making their rounds this morning, when they noticed blood coming through the patient's Bucky Hose on her leg. The patient and the nurse does not know how this occurred. The patient is not ambulatory secondary to her recent hip surgery. She states that she is not in pain, and she has no other injuries. She denies any other abnormal symptoms. 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 Review of Systems See HPI for pertinent positives and negatives. A total of ten systems were reviewed and were otherwise negative. Past Medical & Surgical Medical Problems: (1) Chronic Obstructive Asthma, Nos (2) Dementia (3) Gastrointestinal bleeding (4) Hyperlipidemia Nec/Nos (5) Hypertension Nos (6) Iron deficiency anemia, unspecified (7) Rotator Cuff Synd Nos Family History Omitted secondary to age. Social History Smoking Status: Never Smoker Smokeless Tobacco Use: No Marital Status: Housing Status: [facility] Occupation Status: retired Current/Historical Medications Scheduled Amlodipine Besylate (Amlodipine Besylate), 5 MG PO QAM Aspirin (Aspirin), 325 MG PO BID Budesonide/Formoterol Fumarate (Symbicort 160/4.5 Inhaler ), 2 PUFFS INH BID Cholecalciferol (Vitamin D3), 1,000 UNITS PO DAILY Cyanocobalamin (Vitamin B-12), 2,000 MCG PO DAILY Metoprolol Succ (Toprol Xl) (Toprol-Xl), 50 MG PO DAILY Pantoprazole (Pantoprazole Sodium), 40 MG PO QAM Prednisone (Prednisone), 5 MG PO DAILY Sertraline (Zoloft), 75 MG PO DAILY Scheduled PRN Acetaminophen (Tylenol), 325-650 MG PO Q6H PRN for Pain Lorazepam (Ativan), 0.5 MG PO Q8 PRN for ANXIETY Allergies Coded Allergies: Penicillins (Verified Allergy, Intermediate, PT STATES SHE "KEELED OVER"-- I HAVE NO IDEA WHAT THIS MEANS!, 07/30/16) PT STATES SHE "KEELED OVER" Codeine (Verified Allergy, Unknown, UNKNOWN, 07/30/16) Moxifloxacin (Verified Allergy, Unknown, UNKNOWN, 07/30/16) Tramadol (Verified Allergy, Unknown, UNKNOWN, 07/30/16) Uncoded Allergies: CYCLOSPORINS (Allergy, Unknown, UNKNOWN, 07/30/16) Physical Exam Vital Signs Date Time Temp Pulse Resp B/P Pulse Ox O2 Delivery O2 Flow Rate FiO2 08/19/16 04:41 36.7 82 20 151/51 95 Room Air Physical Exam GENERAL: Awake, alert, well-appearing, in no distress HENT: Normocephalic, atraumatic. Oropharynx unremarkable. EYES: Normal conjunctiva. Sclera non-icteric. NECK: Supple. No nuchal rigidity. FROM. No JVD. RESPIRATORY: Clear to auscultation. CARDIAC: Regular rate, normal rhythm. Extremities warm and well perfused. Pulses equal. ABDOMEN: Soft, non-distended. No tenderness to palpation. No rebound or guarding. No masses. RECTAL: Deferred. MUSCULOSKELETAL: Chest examination reveals no tenderness. The back is symmetrical on inspection without obvious abnormality. There is no CVA tenderness to palpation. No joint edema. UPPER EXTREMITIES: Old skin tear to the right hand dorsum and knuckles. LOWER EXTREMITIES: Steri strips to the right lateral hip secondary to recent hip surgery. Well healing. Ecchymosis bilaterally. About 6 cm elliptical laceration to the lower left lateral leg at the dexter. NEURO: Normal sensorium. No sensory or motor deficits noted. SKIN: No rash or jaundice noted. Medical Decision & Procedures Procedure Location: Lower left lateral leg at the dexter. Total length: 6 cm Complexity: Simple Verbal consent was obtained after the risks and benefits were explained, including but not limited to bleeding, scarring, infection, pain, and bone/joint /nerve damage. At this time, the risks of the procedure are less than the risks of NOT performing the procedure. A time out was taken and the correct patient and site identified. The skin was prepped with betadine. The target area was anesthetized with 8 ml of 1% lidocaine without epinephrine. Copious irrigation was performed using saline. The skin was re-prepped with betadine and a sterile field set. The wound was explored for foreign bodies and none found. Examination revealed no injury to deep structures such as tendons, bone, or significant blood vessels. Debridement was not performed. The wound edges were approximated using 5, 4-0 simple interrupted nylon sutures. Hemostasis and excellent approximation was achieved. Steri strips were applied. Antibacterial ointment and a sterile dressing applied. Detailed wound care instructions and signs and symptoms of infection reviewed with the patient. No complications and the patient tolerated the procedure well. ED Course 0446: The patient was evaluated in room A3. A complete history and physical exam was performed. 0452: At this time, I performed a laceration repair procedure. Please see the procedure note for more information. 0455: Ordered Lidocaine HCl 20 ml INFIL 0502: I reevaluated the patient. Discussed results and discharge instructions: She verbalized understanding and agreement. The patient is ready for discharge. Medical Decision Differential diagnoses include but are not limited to; laceration, abrasion, and skin tear. Repaired skin laceration patient in no distress Impression Primary Impression: Laceration of lower extremity Scribe Attestation The scribe's documentation has been prepared under my direction and personally reviewed by me in its entirety. I confirm that the note above accurately reflects all work, treatment, procedures, and medical decision making performed by me. Departure Information Dispostion Home / Self-Care Referrals Margarita Che D.O. (PCP) Patient Instructions ED Laceration All, My [facility] Problem Qualifiers Primary Impression: Laceration of lower extremity Encounter type: initial encounter Laterality: left Qualified Codes: S81.812A - Laceration without foreign body, left lower leg, initial encounter
[2016-08-19 06:05] VITALS: BP 166/51; PULSE 75; O2SAT 96
== END 2016-08-19 06:06 | disposition home or self-care (01) ==
LOC: EDBD 04:38 → C.EDA 04:40
DX: S81.812A Laceration without foreign body, left lower leg, initial encounter (principal); X58.XXXA Exposure to other specified factors, initial encounter; Y92.128 Other place in nursing home as the place of occurrence of the external cause; F03.90 Unspecified dementia, unspecified severity, without behavioral disturbance, psychotic disturbance, mood disturbance, and anxiety; I10 Essential (primary) hypertension

== ENCOUNTER 2016-09-10 07:52 | Emergency (ER) | payer BC, OTHER ==
[~2016-09-10] VITALS: Ht 157.5 cm; Wt 45.7 kg
[2016-09-10] MEDS ORDERED: ALBUT/IPRATROP 3MG/0.5MG NEB 3 ML VIAL INH STA (07:57)
[2016-09-10 08:00] VITALS: TEMP 37.1; Ht 157.5 cm; Wt 45.7 kg
--- NOTE | 2016-09-10 08:06 | EMERGENCY ROOM VISIT NOTE ---
History Report prepared by Luis Alberto: Jose Alberto Cha Under the Supervision of: Dr. Cecy Love M.D. First contact with patient: 07:55 Chief Complaint: COUGH Stated Complaint: COUGH History of Present Illness The patient is an 86 year old female who presents to the Emergency Room from the [facility] with complaints of cough and shortness of breath. Per EMS the patient had an episode of shortness of breath shortly prior to arrival. She was given breather treatments at the [facility] that seemed to improve her condition. She has also been coughing persistently throughout the day today. She has a history of COPD. [facility] nursing staff noted that the patient had a low oxygen saturation on room air today as well. 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 A total of 10 systems reviewed and were otherwise negative. Past Medical & Surgical Medical Problems: (1) Chronic Obstructive Asthma, Nos (2) Dementia (3) Gastrointestinal bleeding (4) Hyperlipidemia Nec/Nos (5) Hypertension Nos (6) Iron deficiency anemia, unspecified (7) Rotator Cuff Synd Nos Family History Omitted secondary to patient age. Social History Smoking Status: Never Smoker Marital Status: Housing Status: fpc Occupation Status: retired Current/Historical Medications Scheduled Amlodipine (Norvasc), 5 MG PO QAM Budesonide/Formoterol Fumarate (Symbicort 160/4.5 Inhaler ), 2 PUFFS INH BID Cefdinir (Omnicef), 300 MG PO BID Cholecalciferol (Vitamin D3), 1,000 UNITS PO DAILY Cyanocobalamin (Vitamin B-12), 2,000 MCG PO DAILY Ferrous Sulfate (Kp Ferrous Sulfate), 325 MG PO TIDM Haloperidol (Haldol), 0.25 MG PO QPM Metoprolol Succ (Toprol Xl) (Toprol-Xl), 50 MG PO DAILY Pantoprazole Sodium (Protonix), 40 MG PO BID Prednisone (Prednisone), 5 MG PO DAILY Prednisone (Prednisone), 20 MG PO DAILY Senna (Senokot), 8.6 MG PO QAM Sertraline (Zoloft), 100 MG PO QAM Scheduled PRN Acetaminophen (Tylenol), 325-650 MG PO Q6H PRN for Pain Lorazepam (Ativan), 0.5 MG PO Q8 PRN for ANXIETY Allergies Coded Allergies: Penicillins (Verified Allergy, Intermediate, PT STATES SHE "KEELED OVER"-- I HAVE NO IDEA WHAT THIS MEANS!, 09/10/16) PT STATES SHE "KEELED OVER" Codeine (Verified Allergy, Unknown, UNKNOWN, 09/10/16) Cyclosporine (Unverified Allergy, Unknown, _, 09/10/16) Moxifloxacin (Verified Allergy, Unknown, UNKNOWN, 09/10/16) Tramadol (Verified Allergy, Unknown, UNKNOWN, 09/10/16) Physical Exam Vital Signs Date Time Temp Pulse Resp B/P Pulse Ox O2 Delivery O2 Flow Rate FiO2 09/10/16 10:07 72 17 147/65 96 09/10/16 08:52 82 174/64 96 Room Air 09/10/16 08:00 96 Room Air 09/10/16 08:00 37.1 82 18 172/74 96 Room Air Physical Exam Vital signs reviewed. General: Well-appearing elderly female, in no significant distress. HEENT: No scleral icterus, PERRLA, neck supple. Atraumatic. Cardiovascular: Regular rate and rhythm, no extra sounds. Pulmonary: Coarse breath sounds bilaterally, normal work of breathing on room air. Dry cough. Abdomen: Soft, nontender, nondistended, positive bowel sounds. Musculoskeletal: Atraumatic, no peripheral edema. Neurologic: Patient awake alert and oriented x 3, full strength in all 4 extremities. Cranial nerves 2 through 12 grossly intact. Skin: Warm, dry, no rash Medical Decision & Procedures ER Provider Diagnostic Interpretation: Radiology results as stated below per my review and radiologist interpretation: CHEST ONE VIEW PORTABLE CLINICAL HISTORY: COPD COUGH COMPARISON STUDY: 07/30/2016 FINDINGS: The heart is enlarged. There is no overt failure. There is no focal pulmonary consolidation. There are no pleural effusions.[ There is a stable calcification located adjacent the proximal right humerus. There is conventional radiographic evidence of chronic rotator cuff tear/degeneration. IMPRESSION: Mild cardiomegaly. No acute findings. Electronically signed by: Apollo Lazcano M.D. 09/10/2016 8:21 AM Dictated Date/Time: 09/10/2016 8:20 AM Laboratory Results 09/10/16 08:05 Red Blood Count 3.64, Mean Corpuscular Volume 96.4, Mean Corpuscular Hemoglobin 30.8, Mean Corpuscular Hemoglobin Concent 31.9, Mean Platelet Volume 8.8, Neutrophils (%) (Auto) 85.7, Lymphocytes (%) (Auto) 5.2, Monocytes (%) (Auto) 8.0, Eosinophils (%) (Auto) 0.8, Basophils (%) (Auto) 0.1, Neutrophils # (Auto) 10.56, Lymphocytes # (Auto) 0.64, Monocytes # (Auto) 0.98, Eosinophils # (Auto) 0.10, Basophils # (Auto) 0.01 09/10/16 08:05 Test 09/10/16 08:05 09/10/16 08:12 09/10/16 08:17 White Blood Count 12.32 K/uL (4.8-10.8) Red Blood Count 3.64 M/uL (4.2-5.4) Hemoglobin 11.2 g/dL (12.0-16.0) Hematocrit 35.1 % (37-47) Mean Corpuscular Volume 96.4 fL (80-100) Mean Corpuscular Hemoglobin 30.8 pg (25-34) Mean Corpuscular Hemoglobin Concent 31.9 g/dl (32-36) Platelet Count 164 K/uL (130-400) Mean Platelet Volume 8.8 fL (7.4-10.4) Neutrophils (%) (Auto) 85.7 % Lymphocytes (%) (Auto) 5.2 % Monocytes (%) (Auto) 8.0 % Eosinophils (%) (Auto) 0.8 % Basophils (%) (Auto) 0.1 % Neutrophils # (Auto) 10.56 K/uL (1.4-6.5) Lymphocytes # (Auto) 0.64 K/uL (1.2-3.4) Monocytes # (Auto) 0.98 K/uL (0.11-0.59) Eosinophils # (Auto) 0.10 K/uL (0-0.5) Basophils # (Auto) 0.01 K/uL (0-0.2) RDW Standard Deviation 56.2 fL (36.4-46.3) RDW Coefficient of Variation 15.8 % (11.5-14.5) Immature Granulocyte % (Auto) 0.2 % Immature Granulocyte # (Auto) 0.03 K/uL (0.00-0.02) Anion Gap 7.0 mmol/L (3-11) Est Creatinine Clear Calc Drug Dose 18.5 ml/min Estimated GFR () 33.7 Estimated GFR (Non- 29.1 BUN/Creatinine Ratio 20.6 (10-20) Calcium Level 8.8 mg/dl (8.5-10.1) Magnesium Level 2.3 mg/dl (1.8-2.4) Total Bilirubin 0.6 mg/dl (0.2-1) Direct Bilirubin 0.1 mg/dl (0-0.2) Aspartate Amino Transf (AST/SGOT) 17 U/L (15-37) Alanine Aminotransferase (ALT/SGPT) 16 U/L (12-78) Alkaline Phosphatase 196 U/L (45-117) Total Protein 7.0 gm/dl (6.4-8.2) Albumin 3.6 gm/dl (3.4-5.0) Bedside Troponin I 0.000 ng/ml (0-0.045) Bedside Glucose 82 mg/dl (70-90) Laboratory results per my review. Medications Administered Medications (Trade) Dose Ordered Sig/Ojse M Route Start Time Stop Time Status Last Admin Dose Admin Albuterol/ Ipratropium (Duoneb) 3 ml NOW STAT INH 09/10/16 07:57 09/10/16 08:00 DC 09/10/16 08:21 3 ML Cefdinir (Cefdinir) 300 mg NOW ONCE PO 09/10/16 10:00 09/10/16 10:01 DC 09/10/16 10:00 300 MG ECG Indication: SOB/dyspnea Rate (beats per minute): 83 Rhythm: sinus rhythm Findings: LAFB, nonspecific-ST abn, PAC, RBBB (incomplete) ED Course 0756: Past medical records reviewed. The patient was evaluated in room A2. A complete history and physical examination was performed. 0757: Ordered Duoneb 3 mL INH. 1000: Ordered Cefdinir 300 mg PO. 0943: Upon reevaluation, the patient appeared to have improvement of her symptoms. The patient's family had arrived to the room at this time. I discussed findings with the patient and her family. They verbalized agreement of the treatment plan. The patient was discharged home. Medical Decision The patient's history was concerning for respiratory difficulties. Differential diagnosis: Etiologies such as infections, reactive airway disease, pneumonia, pneumothorax , COPD, CHF, cardiac ischemia, pulmonary embolism, musculoskeletal, gastrointestinal, as well as others were entertained. This patient was evaluated and appeared to be in no significant distress. IV access was obtained and laboratory work was drawn. The patient was placed on the cardiac surgeon and found to be in a normal sinus rhythm with frequent PACs. Chest x-ray was performed and is negative for acute findings. Patient was given a DuoNeb treatment. She was feeling improved. Patient has a mild leukocytosis. Patient was given Omnicef 300 mg orally. Pt will be d/c with albuterol q 4 hours prn, omnicef BID x 7 days and prednisone 20 mg daily for 5 days.. She will return to the ED for worsening of symptoms or any medical concerns. Impression Primary Impression: COPD exacerbation Scribe Attestation The scribe's documentation has been prepared under my direction and personally reviewed by me in its entirety. I confirm that the note above accurately reflects all work, treatment, procedures, and medical decision making performed by me. Departure Information Dispostion Home / Self-Care Prescriptions Cefdinir (Omnicef) 300 Mg Cap 300 MG PO BID, #13 CAP Prov: Cecy Love M.D. 09/10/16 Prednisone (Prednisone) 20 Mg Tab 20 MG PO DAILY, #4 TAB Prov: Cecy Love M.D. 09/10/16 Referrals Margarita Che D.O. (PCP) Forms HOME CARE DOCUMENTATION FORM, IMPORTANT VISIT INFORMATION Patient Instructions [facility] Additional Instructions Diagnosis: COPD Predniosone 20 mg daily for 4 more days, start tomorrow. Albuterol inhaler 2 puffs every 4 hours for wheezing or cough while awake. Omnicef 300 mg every 12 hours for 7 days. Follow up with your doctor this week for reevaluation. Return to emergency for worsening of symptoms or any medical concerns.
[2016-09-10 08:20] LABS: BASO % 0.1 %; BASO ABS # 0.01 K/uL (0-0.2); COMPLETE YES; EOS % 0.8 %; HEMATOCRIT 35.1 % (37-47); IG% 0.2 %; LYMPH % 5.2 %; LYMPH ABS # 0.64 K/uL (1.2-3.4); MEAN CELL VOLUME 96.4 fL (80-100); MEAN CORPUSCULAR HEMOGLOBIN 30.8 pg (25-34); MEAN CORPUSCULAR HGB CONC 31.9 g/dl (32-36); MEAN PLATELET VOLUME 8.8 fL (7.4-10.4); NEUT % 85.7 %; PLATELET COUNT 164 K/uL (130-400); RED BLOOD COUNT 3.64 M/uL (4.2-5.4); WHITE BLOOD COUNT 12.32 K/uL (4.8-10.8)
[2016-09-10] MEDS ORDERED: HALO0.5T9 PO (08:22)
[2016-09-10] MEDS ORDERED: AMLO-110 PO (08:22)
[2016-09-10] MEDS ORDERED: FERR1TAB13 PO (08:22)
--- NOTE | 2016-09-10 08:22 | DIAGNOSTIC IMAGING REPORT ---
CHEST ONE VIEW PORTABLE CLINICAL HISTORY: COPD COUGH COMPARISON STUDY: 07/30/2016 FINDINGS: The heart is enlarged. There is no overt failure. There is no focal pulmonary consolidation. There are no pleural effusions.[ There is a stable calcification located adjacent the proximal right humerus. There is conventional radiographic evidence of chronic rotator cuff tear/degeneration. IMPRESSION: Mild cardiomegaly. No acute findings. Electronically signed by: Apollo Lazcano M.D. 09/10/2016 8:21 AM Dictated Date/Time: 09/10/2016 8:20 AM
[2016-09-10] MEDS ORDERED: PANTPAK PO (08:24)
[2016-09-10] MEDS ORDERED: SERT-234 PO (08:24)
[2016-09-10] MEDS ORDERED: SENN-61 PO (08:24)
[2016-09-10 08:37] LABS: BUN/CREATININE RATIO 20.6 (10-20); CREATININE 1.6 mg/dl (0.60-1.20); MAGNESIUM 2.3 mg/dl (1.8-2.4); POTASSIUM 4.3 mmol/L (3.5-5.1)
[2016-09-10 08:41] LABS: CALCIUM 8.8 mg/dl (8.5-10.1)
[2016-09-10] MEDS ORDERED: CEFDINIR 250 MG/5 ML 60 ML PO STA (09:47)
[2016-09-10] MEDS ORDERED: PRED20TA PO (09:55)
[2016-09-10] MEDS ORDERED: CEFD1CAP14 PO (09:56)
[2016-09-10] MEDS ORDERED: CEFDINIR 300 MG CAP PO ONE (10:00)
[2016-09-10 10:07] VITALS: BP 147/65; PULSE 72; O2SAT 96
== END 2016-09-10 10:10 | disposition home or self-care (01) ==
LOC: EDBD 07:52 → C.EDA 07:53
DX: J44.1 Chronic obstructive pulmonary disease with (acute) exacerbation (principal); F03.90 Unspecified dementia, unspecified severity, without behavioral disturbance, psychotic disturbance, mood disturbance, and anxiety; E78.5 Hyperlipidemia, unspecified; I10 Essential (primary) hypertension; Z79.899 Other long term (current) drug therapy

== ENCOUNTER → 2016-10-26 | Outpatient (CLI) | payer BC ==
[~2016-10-26] MED LIST changes: +AMLO-110 PO; -ASPEC325 PO; +CEFD1CAP14 PO; +FERR1TAB13 PO; +HALO0.5T9 PO; -NRV5 PO; +PANTPAK PO; +PRED20TA PO; -PRT40 PO; +SENN-61 PO; +SERT-234 PO; -SERT50TA PO
== END | disposition home or self-care (01) ==
LOC: C.RDSM 14:45
PROVIDERS: ATTEND Physical Medicine & Rehabilitation Sports Medicine
DX: S72.001A Fracture of unspecified part of neck of right femur, initial encounter for closed fracture (principal); X58.XXXA Exposure to other specified factors, initial encounter

== ENCOUNTER 2016-11-15 02:54 | Emergency (ER) | payer BC ==
[2016-11-15 03:04] VITALS: TEMP 36.3
--- NOTE | 2016-11-15 03:06 | EMERGENCY ROOM VISIT NOTE ---
History Report prepared by Luis Alberto: Jacob Loo Under the Supervision of: Dr. Gentry Chamorro M.D. First contact with patient: 02:56 Chief Complaint: FALL Stated Complaint: FALL/ HEAD INJURY, KNEE ABRASION History of Present Illness The patient is an 86 year old female, who is noted to be demented, who presents to the Emergency Room with complaints of a sudden fall that occurred prior to arrival this morning. Per the nursing staff, the patient got up to go to the bathroom, and tripped and fell. The patient hit the back of her head on a book stand, and has a resulting small laceration on the back of her head. She also has a skin tear on her left ankle. The patient denies any other injuries. She also denies any hip or shoulder pain. Source of History: patient, nursing staff Onset: Prior to arrival this morning Position: other (global - fall) Quality: other (hit back of head on book stand) Timing: other (sudden) Note: Associated symptoms: Laceration on back of head. Skin tear on left ankle. Denies hip or shoulder pain. Review of Systems See HPI for pertinent positives & negatives. A total of 10 systems reviewed and were otherwise negative. Past Medical & Surgical Medical Problems: (1) Chronic Obstructive Asthma, Nos (2) Dementia (3) Gastrointestinal bleeding (4) Hyperlipidemia Nec/Nos (5) Hypertension Nos (6) Iron deficiency anemia, unspecified (7) Rotator Cuff Synd Nos Family History Family history omitted secondary to patient's advanced age. Social History Smoking Status: Unknown if Ever Smoked Marital Status: Housing Status: [facility] Occupation Status: retired Current/Historical Medications Scheduled Amlodipine (Norvasc), 5 MG PO QAM Budesonide/Formoterol Fumarate (Symbicort 160/4.5 Inhaler ), 2 PUFFS INH BID Cholecalciferol (Vitamin D3), 1,000 UNITS PO DAILY Cyanocobalamin (Vitamin B-12), 2,000 MCG PO DAILY Ferrous Sulfate (Kp Ferrous Sulfate), 325 MG PO TIDM Haloperidol (Haldol), 0.25 MG PO QPM Metoprolol Succ (Toprol Xl) (Toprol-Xl), 50 MG PO DAILY Pantoprazole Sodium (Protonix), 40 MG PO BID Prednisone (Prednisone), 5 MG PO DAILY Senna (Senokot), 8.6 MG PO QAM Sertraline (Zoloft), 100 MG PO QAM Scheduled PRN Acetaminophen (Tylenol), 325-650 MG PO Q6H PRN for Pain Lorazepam (Ativan), 0.5 MG PO Q8 PRN for ANXIETY Allergies Coded Allergies: Penicillins (Verified Allergy, Intermediate, PT STATES SHE "KEELED OVER"-- I HAVE NO IDEA WHAT THIS MEANS!, 09/10/16) PT STATES SHE "KEELED OVER" Codeine (Verified Allergy, Unknown, UNKNOWN, 09/10/16) Cyclosporine (Unverified Allergy, Unknown, _, 09/10/16) Moxifloxacin (Verified Allergy, Unknown, UNKNOWN, 09/10/16) Tramadol (Verified Allergy, Unknown, UNKNOWN, 09/10/16) Physical Exam Vital Signs Date Time Temp Pulse Resp B/P (MAP) Pulse Ox O2 Delivery O2 Flow Rate FiO2 11/15/16 04:23 58 18 177/62 99 11/15/16 03:04 36.3 59 16 152/67 99 Room Air Physical Exam GENERAL: Patient is demented, elderly, well appearing and in no acute distress. HEENT: 2 cm laceration posterior scalp. Mucous membranes moist, no nasal congestion, no scleral icterus. NECK: No stridor, no adenopathy, no meningismus, trachea is midline. LUNGS: No dyspnea. Clear to auscultation and equal bilaterally. No wheeze, no rhonchi. HEART: Regular rate and rhythm. No murmurs, rubs, gallops appreciated. ABDOMEN: Soft, nontender, bowel sounds positive, no masses appreciated, no peritonitis. BACK: No midline tenderness, no CVA tenderness EXTREMITIES: Abrasion over left dexter. Normal motion all extremities, no cyanosis , no edema. NEUROLOGIC: Demented but awake, alert, and in no distress. 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 GCS of 15. SKIN: No rash, no jaundice, no diaphoresis. Medical Decision & Procedures ER Provider Diagnostic Interpretation: CT HEAD: No acute intracranial abnormality identified. Minimal posterior scalp hematoma at the vertex. No skull fracture. Stable chronic small vessel ischemic disease and cerebral volume loss compared to prior exam on 07/30/2016. Bilateral lens implants. Artherosclerotic calcifications in the intracranial vasculature. CT C SPINE: No acute traumatic abnormality identified. Mild reversal of the normal cervical lordosis with prominent multilevel degenerative changes of the cervical spine. Mild degenerative anterolisthesis of C2 on C3. Minimal degenerative retrolisthesis of C3 on C4 and C5 on C6. Small hypodense nodules in the thyroid and small calcification in the left thyroid lobe. Radiologist: Sinai Andre M.D. Study ready at 03:43 and initial results transmitted at 04:10 X ray results are stated below per my interpretation: Chest: 1 view: Degenerative change, no infiltrate, no effusion, old fracture right lower ribs. Pelvis: 1 view: Right hip hardware, diffuse arthritic changes, no fracture, no dislocation. Procedure Location: Scalp Total length: 2 cm Complexity: Simple Verbal consent was obtained after the risks and benefits were explained, including but not limited to bleeding, scarring, infection, pain, and bone/ nerve damage. At this time, the risks of the procedure are less than the risks of NOT performing the procedure. A time out was taken and the correct patient and site identified. The scalp was prepped with betadine. The target area was anesthetized with 2 ml of 1% lidocaine without epinephrine. Copious irrigation was performed using saline. The skin was re-prepped with betadine, the hair cleared from the wound, and a sterile field set. The wound was explored for foreign bodies and none found. Debridement was not performed. The wound edges were approximated using 3 surgical daljit in the standard fashion. Hemostasis and excellent approximation was achieved. Antibacterial ointment and a sterile dressing applied. Detailed wound care instructions and signs and symptoms of infection reviewed with the son. No complications and the patient tolerated the procedure well. ED Course 0302: The patient was evaluated in room A2. A complete history and physical exam was performed. 0315: Ordered Buffered Lidocaine 1% Inj 20 ml INFIL. 0423: I reevaluated the patient and she is resting comfortably. The patient's son feels comfortable taking the patient home to [facility] and expresses understanding and agreement of the treatment plan. The patient will be discharged. Medical Decision 86 yr old female with dementia and frequent falls arrives following fall striking posterior head. 2 cm lac stapled here. No fractures and CT negative acute findings. Stable, no distress and happy. Discussed suture care with son. Head Trauma GCS Score: 15 Medication Reconcilliation Current Medication List: was personally reviewed by me Blood Pressure Screening Patient's blood pressure: Elevated blood pressure Blood pressure disposition: Elevated BP felt to be situational Will be monitored in [facility]. Impression Primary Impression: Fall Additional Impressions: Occipital scalp laceration Skin abrasion Scribe Attestation The scribe's documentation has been prepared under my direction and personally reviewed by me in its entirety. I confirm that the note above accurately reflects all work, treatment, procedures, and medical decision making performed by me. Departure Information Dispostion Home / Self-Care Referrals Bon Weinberg M.D. (PCP) Patient Instructions My [facility] Additional Instructions Daljit were placed in posterior scalp. They will need to be removed in 7-10 days. Monitor for signs of infection including fevers, swelling, drainage, redness, altered mental status. Clean wound with soap and water and apply antibiotic ointment. CT scan of head and cervical spine were done which showed no acute injuries. Significant arthritic changes of spine. Chest Xray and Pelvis Xray without acute injury found. Old fractures and arthritic changes noted. Problem Qualifiers
[2016-11-15] MEDS ORDERED: XYLOCAINE 1%/SOD BICARB 20 ML VIAL INFIL ONE (03:15)
[2016-11-15 04:23] VITALS: BP 177/62; PULSE 58; O2SAT 99
--- NOTE | 2016-11-15 08:06 | DIAGNOSTIC IMAGING REPORT ---
CHEST ONE VIEW PORTABLE CLINICAL HISTORY: Trauma. Pain. COMPARISON STUDY: 09/10/2016 FINDINGS: The heart is enlarged. No pneumothorax is visualized. There is no focal pulmonary consolidation. There is no overt failure. There are no pleural effusions. There is radiographic evidence of chronic left rotator cuff tear/degeneration. There is a stable left apical opacity, likely representing a prominent left first costochondral junction[ IMPRESSION: Moderate cardiomegaly. No acute findings. Electronically signed by: Apollo Lazcano M.D. 11/15/2016 8:04 AM Dictated Date/Time: 11/15/2016 8:03 AM
--- NOTE | 2016-11-15 08:09 | DIAGNOSTIC IMAGING REPORT ---
PELVIS 1 VIEW ROUTINE CLINICAL HISTORY: Pelvic pain status post trauma COMPARISON STUDY: 10/26/2016 FINDINGS: There is an internally fixated intertrochanteric right hip fracture with exuberant callus formation. There is an old left ischio pubic ring fracture. There is heterotopic ossification adjacent to the left greater trochanter. Moderate degenerative changes are present within the lower lumbar spine. No acute fractures are visualized. Borderline widening of the right SI joint remains unchanged. IMPRESSION: Old postsurgical and posttraumatic change. No acute fractures identified. Electronically signed by: Apollo Lazcano M.D. 11/15/2016 8:07 AM Dictated Date/Time: 11/15/2016 8:05 AM
--- NOTE | 2016-11-15 08:10 | DIAGNOSTIC IMAGING REPORT ---
CT HEAD WITHOUT CONTRAST (CT) CLINICAL HISTORY: Head trauma. Scalp hemorrhage. Pain. COMPARISON STUDY: 07/30/2016 TECHNIQUE: Axial CT of the brain is performed from the vertex to the skull base. IV contrast was not administered for this examination. A dose lowering technique was utilized adhering to the principles of ALARA. CT DOSE: 960.75 mGy.cm FINDINGS: No intra or extra-axial mass lesions are visualized. There is no CT evidence of acute cortical infarction. There is no evidence of midline shift. There is no acute hemorrhage. No calvarial fractures are visualized. There are patchy white matter hypodensities likely on a small vessel basis. There is stable ventricular dilatation, likely secondary to volume loss. There is no evidence of acute sinusitis . There is scalp swelling at the posterior vertex. IMPRESSION: No acute intracranial findings Electronically signed by: Apollo Lazcano M.D. 11/15/2016 8:09 AM Dictated Date/Time: 11/15/2016 8:07 AM
--- NOTE | 2016-11-15 08:14 | DIAGNOSTIC IMAGING REPORT ---
CT OF THE CERVICAL SPINE CLINICAL HISTORY: Neck pain status post trauma COMPARISON STUDY: No previous studies for comparison. CT DOSE: TECHNIQUE: CT scan of the cervical spine was performed from the skull base to the thoracic inlet. Images are reviewed in the axial, sagittal, and coronal planes. IV contrast was not administered for this examination. A dose lowering technique was utilized adhering to the principles of ALARA. FINDINGS: The visualized portions of the lung apices reveal no evidence of pneumothorax. There is a 7 mm left lobe thyroid nodule. There is a lower pole left lobe thyroid calcification. There are old posttraumatic changes involving the medial right clavicle. The prevertebral soft tissues are normal. No fractures or subluxations are visualized. There are advanced multilevel degenerative changes. There is slight reversal of the normal cervical lordosis. Minimal anterolisthesis of C2 on C3 is felt to be degenerative/physiologic. Minimal retrolisthesis of C5 on C6 is felt to be degenerative IMPRESSION: Advanced multilevel degenerative change. No acute fractures or traumatic subluxations are visualized. Electronically signed by: Apollo Lazcano M.D. 11/15/2016 8:13 AM Dictated Date/Time: 11/15/2016 8:09 AM
== END 2016-11-15 04:25 | disposition home or self-care (01) ==
LOC: EDBD 02:54 → C.EDA 02:56
DX: S01.01XA Laceration without foreign body of scalp, initial encounter (principal); W18.09XA Striking against other object with subsequent fall, initial encounter; S91.012A Laceration without foreign body, left ankle, initial encounter; S80.812A Abrasion, left lower leg, initial encounter; J44.9 Chronic obstructive pulmonary disease, unspecified; F03.90 Unspecified dementia, unspecified severity, without behavioral disturbance, psychotic disturbance, mood disturbance, and anxiety; E78.5 Hyperlipidemia, unspecified; I10 Essential (primary) hypertension; Z79.899 Other long term (current) drug therapy; G51.0 Bell's palsy